=== PATIENT | female | born 1960 | race Two or more races ===

== ENCOUNTER 2017-09-02 15:26 | Emergency (ER) | payer OTHER ==
[~2017-09-02] VITALS: Ht 165.1 cm; Wt 90.7 kg
[~2017-09-02 15:26] MED LIST: ALBU90OI INH; ASPI81CH PO; ATOR40TA PO; BUDE6HFA INH; BUPR100 PO; CLOP75 PO; Esgic Tablet1 EACH PO; LEVSOD125 PO; LISI20 PO; LORA.5 PO; Lomotil Tablet1 EACH PO; NICO14TP TOP; Norco 5-325 Ta1 EACH PO; ONDA8 PO; Percocet 10-321 EACH PO; SERT100 PO; SERT25; TIOT18 INH; Toprol Xl50 MG PO; Ventolin Soln3 ML INH; Zithromax250 MG PO; Zofran Odt4 MG SL; Zofran4 MG PO
[2017-09-02 16:33] LABS: BASOPHILS ABSOLUTE AUTO 0.02 K/mm3 (0.00-0.23); BASOPHILS PERCENT AUTO 0 % (0-2); EOSINOPHILS ABSOLUTE AUTO 0.06 K/mm3 (0.00-0.68); EOSINOPHILS PERCENT AUTO 1 % (0-6); Hematocrit 43.4 % (33.0-51.0); Hemoglobin 14.3 g/dL (11.5-16.0); IMMATURE GRAN ABSOLUTE AUTO 0.01 K/mm3 (0.00-0.10); IMMATURE GRAN PERCENT AUTO 0 % (0-1); LYMPHOCYTES ABSOLUTE AUTO 1.29 K/mm3 (0.84-5.20); LYMPHOCYTES PERCENT AUTO 28 % (21-46); MONOCYTES ABSOLUTE AUTO 0.25 K/mm3 (0.16-1.47); MONOCYTES PERCENT AUTO 5 % (4-13); Mean Corpuscular HGB Conc 32.9 g/dL (31.5-36.5); Mean Corpuscular Volume 94 fL (80-100); Mean Platelet Volume 10.6 fL (9.1-12.4); NEUTROPHILS ABSOLUTE AUTO 3.05 K/mm3 (1.96-9.15); NEUTROPHILS PERCENT AUTO 65 % (41-73); Platelet Count 177 K/mm3 (150-400); RDW Coefficient Variation 12.9 % (11.7-14.2); RDW Standard Deviation 44.3 fL (35.1-46.3); Red Blood Cell Count 4.62 M/mm3 (3.80-5.20); White Blood Cell Count 4.68 K/mm3 (4.00-11.30)
[2017-09-02 16:54] LABS: Troponin I <0.015 ng/mL (0.000-0.040)
[2017-09-02 17:14] LABS: Alanine Aminotransfer (ALT/SGP 31 U/L (12-78); Albumin, Blood 3.9 g/dL (3.4-5.0); Alk Phos 112 U/L (50-136); Anion Gap 7 mmol/L (6-16); Aspartate Aminotrans (AST/SGOT 18 U/L (12-37); Bilirubin, Total 0.3 mg/dL (0.1-1.0); Blood Urea Nitrogen 18 mg/dL (8-24); Bun/Creatinine Ratio 21.5 (12.0-20.0); CO2, Blood 26 mmol/L (21-32); Calcium, Blood 9.1 mg/dL (8.5-10.1); Chloride, Blood 108 mmol/L (98-108); Creatinine, Blood 0.84 mg/dL (0.40-1.00); Glomerular Filtration Rate >60 (60-); Glucose, Blood 81 mg/dL (70-99); Potassium, Blood 3.9 mmol/L (3.5-5.5); Sodium, Blood 141 mmol/L (136-145); Total Protein, Blood 7.9 g/dL (6.4-8.2)
[2018-07-15] MEDS ORDERED: BUSP15 PO (16:27)
[2018-07-18] MEDS ORDERED: ASPI81CH PO (12:59)
[2018-07-18] MEDS ORDERED: ATOR80 PO (12:59)
[2018-07-18] MEDS ORDERED: METO50ER PO (12:59)
== END 2017-09-02 19:04 | disposition left against medical advice (07) ==
LOC: ER 15:26
PROVIDERS: Psychiatry & Neurology Psychiatry
DX: Z53.21 Procedure and treatment not carried out due to patient leaving prior to being seen by health care provider (principal); R53.1 Weakness; R07.9 Chest pain, unspecified; R06.02 Shortness of breath; R20.0 Anesthesia of skin
CPT/HCPCS: 36415; 70450; 71046; 80053; 83880; 84484; 85025; 93005; 93010; 99284

== ENCOUNTER 2017-09-18 16:02 | Observation (INO) | payer OTHER ==
[~2017-09-18] VITALS: Ht 165.1 cm; Wt 100.7 kg
[2017-09-18 17:11] LABS: BASOPHILS ABSOLUTE AUTO 0.01 K/mm3 (0.00-0.23); BASOPHILS PERCENT AUTO 0 % (0-2); EOSINOPHILS ABSOLUTE AUTO 0.03 K/mm3 (0.00-0.68); EOSINOPHILS PERCENT AUTO 1 % (0-6); Hematocrit 43.1 % (33.0-51.0); Hemoglobin 14.2 g/dL (11.5-16.0); IMMATURE GRAN ABSOLUTE AUTO 0.02 K/mm3 (0.00-0.10); IMMATURE GRAN PERCENT AUTO 0 % (0-1); LYMPHOCYTES ABSOLUTE AUTO 1.45 K/mm3 (0.84-5.20); LYMPHOCYTES PERCENT AUTO 24 % (21-46); MONOCYTES ABSOLUTE AUTO 0.27 K/mm3 (0.16-1.47); MONOCYTES PERCENT AUTO 5 % (4-13); Mean Corpuscular HGB 30.9 pg (26.0-34.0); Mean Corpuscular HGB Conc 32.9 g/dL (31.5-36.5); Mean Corpuscular Volume 94 fL (80-100); Mean Platelet Volume 10.8 fL (9.1-12.4); NEUTROPHILS ABSOLUTE AUTO 4.26 K/mm3 (1.96-9.15); NEUTROPHILS PERCENT AUTO 71 % (41-73); Platelet Count 178 K/mm3 (150-400); RDW Coefficient Variation 12.6 % (11.7-14.2); White Blood Cell Count 6.04 K/mm3 (4.00-11.30)
[2017-09-18 17:24] LABS: International Normalized Ratio 1.01; Prothrombin Time Results 10.5 Sec (9.7-11.5)
[2017-09-18 17:30] LABS: Alanine Aminotransfer (ALT/SGP 29 U/L (12-78); Alk Phos 99 U/L (50-136); Anion Gap 6 mmol/L (6-16); Aspartate Aminotrans (AST/SGOT 21 U/L (12-37); Bilirubin, Total 0.4 mg/dL (0.1-1.0); Blood Urea Nitrogen 15 mg/dL (8-24); Bun/Creatinine Ratio 18.9 (12.0-20.0); CO2, Blood 26 mmol/L (21-32); Calcium, Blood 9.3 mg/dL (8.5-10.1); Chloride, Blood 108 mmol/L (98-108); Ethanol (Alcohol), Blood, Med <3 mg/dL; Globulin, Blood 3.9 g/dL (2.2-4.0); Glomerular Filtration Rate >60 (60-); Glucose, Blood 83 mg/dL (70-99); Potassium, Blood 3.5 mmol/L (3.5-5.5); Sodium, Blood 140 mmol/L (136-145); Total Protein, Blood 7.9 g/dL (6.4-8.2)
[2017-09-18] MEDS ORDERED: AMLO5 PO (19:13)
[2017-09-18] MEDS ORDERED: OXYC1TAB11 PO (22:01)
[2017-09-18] MEDS ORDERED: ERGO400 PO (22:02)
[2017-09-18 22:51] LABS: Source, Urine Voided
[2017-09-18 22:55] LABS: Bilirubin, Urine Neg (Neg); Blood, Urine 1+ (Neg); Glucose Qualitative, Urine Neg (Neg); Ketones, Urine Neg (Neg); Leukocyte Esterase, Urine Neg (Neg); Nitrite, Urine Neg (Neg); Protein, Urine Neg (Neg); Urobilinogen, Urine NORM (Normal)
[2017-09-18 23:19] LABS: Appearance, Urine Cloudy (Clear); Color, Urine Yellow (P-Yellow); U Amphetamine Screen Not Detected; U Barbituate Screen Not Detected; U Benzodiazapine Screen DETECTED; U Buprenorphine Screen Not Detected; U Cannabinoids Screen Not Detected; U Cocaine Screen Not Detected; U Methadone Screen Not Detected; U Methamphetamine Screen Not Detected; U Opiates Screen Not Detected; U Oxycodone Screen DETECTED; U Phencyclidine Screen Not Detected; U Propoxyphene Screen Not Detected
[2017-09-18 23:21] LABS: Bacteria Many /hpf; Red Blood Cells, Urine 0-2 /hpf (0-2); Squamous Epithelial Cells Many /hpf (Few); White Blood Cells, Urine 0-2 /hpf (0-5)
[2017-09-19 05:36] LABS: BASOPHILS ABSOLUTE AUTO 0.01 K/mm3 (0.00-0.23); BASOPHILS PERCENT AUTO 0 % (0-2); EOSINOPHILS ABSOLUTE AUTO 0.07 K/mm3 (0.00-0.68); EOSINOPHILS PERCENT AUTO 1 % (0-6); Hematocrit 39.4 % (33.0-51.0); Hemoglobin 12.6 g/dL (11.5-16.0); IMMATURE GRAN ABSOLUTE AUTO 0.01 K/mm3 (0.00-0.10); IMMATURE GRAN PERCENT AUTO 0 % (0-1); LYMPHOCYTES ABSOLUTE AUTO 1.63 K/mm3 (0.84-5.20); LYMPHOCYTES PERCENT AUTO 34 % (21-46); MONOCYTES PERCENT AUTO 6 % (4-13); Mean Corpuscular HGB 30.4 pg (26.0-34.0); Mean Corpuscular Volume 95 fL (80-100); Mean Platelet Volume 10.3 fL (9.1-12.4); NEUTROPHILS ABSOLUTE AUTO 2.85 K/mm3 (1.96-9.15); NEUTROPHILS PERCENT AUTO 59 % (41-73); Platelet Count 157 K/mm3 (150-400); RDW Coefficient Variation 12.5 % (11.7-14.2); RDW Standard Deviation 43.8 fL (35.1-46.3); Red Blood Cell Count 4.15 M/mm3 (3.80-5.20); White Blood Cell Count 4.87 K/mm3 (4.00-11.30)
[2017-09-19 06:13] LABS: Anion Gap 8 mmol/L (6-16); Blood Urea Nitrogen 17 mg/dL (8-24); Bun/Creatinine Ratio 17.7 (12.0-20.0); CO2, Blood 29 mmol/L (21-32); Calcium, Blood 8.5 mg/dL (8.5-10.1); Chloride, Blood 104 mmol/L (98-108); Creatinine, Blood 0.96 mg/dL (0.40-1.00); Glomerular Filtration Rate >60 (60-); Glucose, Blood 94 mg/dL (70-99); Potassium, Blood 3.1 mmol/L (3.5-5.5); Sodium, Blood 141 mmol/L (136-145)
[2017-09-19] MEDS ORDERED: Ventolin5 MG/1 ML INH (10:47)
[2017-09-19] MEDS ORDERED: SERT100 PO (10:49)
[2017-09-19] MEDS ORDERED: TOPI100 PO (10:50)
[2017-09-19] MEDS ORDERED: ZESTORETIC 20-1 EACH PO (10:50)
[2017-09-21 09:39] LABS: Activated Protein C Resistance 2.3 (>1.9); Antithrombin III Activity 97 % (74-126); Protein C Activity 133 % (70-145)
[2017-09-21 14:35] LABS: dRVVT 43.7 sec (31.8-45.7)
[2017-09-21 18:22] LABS: Homocysteine 13.3 umol/L (<15)
[2018-07-15] MEDS ORDERED: BUSP15 PO (16:27)
[2018-07-18] MEDS ORDERED: ASPI81CH PO (12:59)
[2018-07-18] MEDS ORDERED: ATOR80 PO (12:59)
[2018-07-18] MEDS ORDERED: METO50ER PO (12:59)
== END 2017-09-19 12:17 | disposition home or self-care (01) ==
LOC: ER 16:02 → MEDS 16:03 → ENPENDDIS 09-19 09:26 → MEDS 09-19 12:17
PROVIDERS: Emergency Medicine; Internal Medicine
DX: G43.109 Migraine with aura, not intractable, without status migrainosus (principal); K62.7 Radiation proctitis; J44.9 Chronic obstructive pulmonary disease, unspecified; I16.1 Hypertensive emergency; I10 Essential (primary) hypertension; F33.1 Major depressive disorder, recurrent, moderate; I67.9 Cerebrovascular disease, unspecified; E89.0 Postprocedural hypothyroidism; E78.5 Hyperlipidemia, unspecified; F17.210 Nicotine dependence, cigarettes, uncomplicated; Z79.891 Long term (current) use of opiate analgesic; Z79.02 Long term (current) use of antithrombotics/antiplatelets; Z79.899 Other long term (current) drug therapy; Z88.6 Allergy status to analgesic agent; Z91.040 Latex allergy status; Z79.52 Long term (current) use of systemic steroids
CPT/HCPCS: 36415; 70450; 71045; 80048; 80053; 81001; 81240; 83090; 85025; 85300; 85301; 85303; 85306; 85307; 85610; 85613; 85670; 85730; 86147; 87086; 93005; 93010; 94640; 94760; 99285; G0378; G0480

== ENCOUNTER → 2018-05-07 | Outpatient (CLI) | payer OTHER ==
[~2018-05-07] MED LIST changes: +AMLO5 PO; +ERGO400 PO; +OXYC1TAB11 PO; +TOPI100 PO; +Ventolin5 MG/1 ML INH; +ZESTORETIC 20-1 EACH PO
[2018-05-07 15:13] LABS: BASOPHILS ABSOLUTE AUTO 0.03 K/mm3 (0.00-0.23); BASOPHILS PERCENT AUTO 1 % (0-2); EOSINOPHILS ABSOLUTE AUTO 0.04 K/mm3 (0.00-0.68); EOSINOPHILS PERCENT AUTO 1 % (0-6); Hemoglobin 13.8 g/dL (11.5-16.0); IMMATURE GRAN ABSOLUTE AUTO 0.01 K/mm3 (0.00-0.10); IMMATURE GRAN PERCENT AUTO 0 % (0-1); LYMPHOCYTES ABSOLUTE AUTO 1.36 K/mm3 (0.84-5.20); LYMPHOCYTES PERCENT AUTO 32 % (21-46); MONOCYTES ABSOLUTE AUTO 0.27 K/mm3 (0.16-1.47); MONOCYTES PERCENT AUTO 6 % (4-13); Mean Corpuscular HGB 30.9 pg (26.0-34.0); Mean Corpuscular HGB Conc 33.7 g/dL (31.5-36.5); Mean Corpuscular Volume 92 fL (80-100); Mean Platelet Volume 10.7 fL (9.1-12.4); NEUTROPHILS PERCENT AUTO 60 % (41-73); Platelet Count 191 K/mm3 (150-400); RDW Coefficient Variation 13.4 % (11.7-14.2); RDW Standard Deviation 45.3 fL (35.1-46.3); Red Blood Cell Count 4.46 M/mm3 (3.80-5.20); White Blood Cell Count 4.31 K/mm3 (4.00-11.30)
[2018-05-07 15:21] LABS: Albumin, Blood 4.2 g/dL (3.4-5.0); Albumin/Globulin Ratio 1.1 (0.8-1.8); Bilirubin, Total 0.3 mg/dL (0.1-1.0); Bun/Creatinine Ratio 18.2 (12.0-20.0); Calcium, Blood 9.5 mg/dL (8.5-10.1); Creatinine, Blood 0.99 mg/dL (0.40-1.00); Globulin, Blood 3.9 g/dL (2.2-4.0); Potassium, Blood 3.6 mmol/L (3.5-5.5); Total Protein, Blood 8.1 g/dL (6.4-8.2)
== END | disposition home or self-care (01) ==
LOC: LAB EV 15:07 → LAB SHORT 15:07
PROVIDERS: Physician Assistant
DX: R10.11 Right upper quadrant pain (principal)
CPT/HCPCS: 80053; 83690; 85025

== ENCOUNTER → 2018-05-09 | Outpatient (CLI) | payer OTHER ==
[2018-05-10 10:32] LABS: Adenovirus F 40/41 Not Detected (NOT DETECT); Astrovirus Not Detected (NOT DETECT); Campylobacter Sp Not Detected (NOT DETECT); Cryptosporidium Not Detected (NOT DETECT); Cyclospora Cayetanensis Not Detected (NOT DETECT); E. Coli O157 Not Detected (NOT DETECT); Entamoeba Histolytica Not Detected (NOT DETECT); Enteroaggregative E. coli-EAEC Not Detected (NOT DETECT); Enteropathogenic E. coli-EPEC Not Detected (NOT DETECT); Enterotoxigenic E. coli-ETEC Not Detected (NOT DETECT); Giardia Lamblia Not Detected (NOT DETECT); Norovirus GI/GII Not Detected (NOT DETECT); Plesiomonas Shigelloides Not Detected (NOT DETECT); Rotavirus A Not Detected (NOT DETECT); Salmonella Sp Not Detected (NOT DETECT); Sapovirus Not Detected (NOT DETECT); Shiga Toxin-prod E. coli-STEC Not Detected (NOT DETECT); Shigella/Enteroin E. coli-EIEC Not Detected (NOT DETECT); Vibrio Cholerae Not Detected (NOT DETECT); Vibrio Sp Not Detected (NOT DETECT); Yersinia Enterocolitica Not Detected (NOT DETECT)
== END | disposition home or self-care (01) ==
LOC: LAB EV 18:00
PROVIDERS: Physician Assistant
DX: R19.7 Diarrhea, unspecified (principal)
CPT/HCPCS: 87507

== ENCOUNTER 2018-10-27 08:52 | Day surgery (SDC) | payer OTHER ==
[~2018-10-27] VITALS: Ht 160 cm; Wt 101.0 kg
[~2018-10-27 08:52] MED LIST changes: +ATOR80 PO; +Accuneb0.63 MG/3 INH; +BUSP15 PO; +Isosorbide Mono30 MG PO; +METO50ER PO; +ONDA4ODT MM; +POTA10T PO; +SPIRIVA RESPIMAT4 GM INH; +TORSE20 PO
--- NOTE | 2018-10-27 11:05 | NUR ---
PT TOLERATES VENOUS ABLATION AND SCLEROTHERAPY TO R LEG WELL. VSS. NADN. PT VERBALIZES UNDERSTANDING WRITTEN AND VERBAL ORDERS. PT IV DC'D. CATH INTACT. PRESSURE DSG APPLIED. PT DC TO HOME VIA FRIEND BY ADELINA
== END 2018-10-27 23:02 | disposition home or self-care (01) ==
LOC: MHTC 08:52 → EDSTATUS 09:15 → VAS 10:00 → MHTC 23:02
DX: I87.2 Venous insufficiency (chronic) (peripheral) (principal); I10 Essential (primary) hypertension; E78.5 Hyperlipidemia, unspecified; I25.10 Atherosclerotic heart disease of native coronary artery without angina pectoris; J44.9 Chronic obstructive pulmonary disease, unspecified; Z86.73 Personal history of transient ischemic attack (TIA), and cerebral infarction without residual deficits; E03.9 Hypothyroidism, unspecified; F17.210 Nicotine dependence, cigarettes, uncomplicated; Z88.5 Allergy status to narcotic agent; Z88.8 Allergy status to other drugs, medicaments and biological substances; Z91.041 Radiographic dye allergy status
CPT/HCPCS: 36465; 36466; 99152; 99153; C1769; C1894; J2250; J3010; J7030; J7040

== ENCOUNTER 2018-11-16 09:22 | Day surgery (SDC) | payer OTHER ==
[~2018-11-16] VITALS: Ht 162.6 cm; Wt 105.0 kg
== END 2018-11-16 23:26 | disposition home or self-care (01) ==
LOC: MHTC 09:22
DX: I87.2 Venous insufficiency (chronic) (peripheral) (principal); I25.10 Atherosclerotic heart disease of native coronary artery without angina pectoris; I10 Essential (primary) hypertension; E78.5 Hyperlipidemia, unspecified; E03.9 Hypothyroidism, unspecified; J44.9 Chronic obstructive pulmonary disease, unspecified; F17.210 Nicotine dependence, cigarettes, uncomplicated; Z86.73 Personal history of transient ischemic attack (TIA), and cerebral infarction without residual deficits; Z88.5 Allergy status to narcotic agent; Z91.041 Radiographic dye allergy status; Z88.8 Allergy status to other drugs, medicaments and biological substances; Z79.899 Other long term (current) drug therapy
CPT/HCPCS: 36465; 36475; C1888; J1644; J2250; J3010; J7030; J7040

== ENCOUNTER → 2019-01-20 | Outpatient (CLI) | payer OTHER ==
[2019-01-20 19:25] LABS: Alanine Aminotransfer (ALT/SGP 35 U/L (12-78); Albumin, Blood 3.9 g/dL (3.4-5.0); Albumin/Globulin Ratio 1.1 (0.8-1.8); Alk Phos 104 U/L (50-136); Anion Gap 7 mmol/L (6-16); Aspartate Aminotrans (AST/SGOT 18 U/L (12-37); Bilirubin, Total 0.3 mg/dL (0.1-1.0); Blood Urea Nitrogen 16 mg/dL (8-24); Bun/Creatinine Ratio 18.1 (12.0-20.0); CO2, Blood 28 mmol/L (21-32); Calcium, Blood 9.4 mg/dL (8.5-10.1); Chloride, Blood 105 mmol/L (98-108); Creatinine, Blood 0.88 mg/dL (0.40-1.00); Globulin, Blood 3.5 g/dL (2.2-4.0); Glomerular Filtration Rate >60 (60-); Glucose, Blood 80 mg/dL (70-99); Potassium, Blood 4.2 mmol/L (3.5-5.5); Sodium, Blood 140 mmol/L (136-145); Total Protein, Blood 7.4 g/dL (6.4-8.2)
== END ==
LOC: LAB 18:55 → LAB SHORT 18:55
PROVIDERS: Internal Medicine Hematology & Oncology
DX: D49.0 Neoplasm of unspecified behavior of digestive system (principal)
CPT/HCPCS: 80053

== ENCOUNTER 2019-05-05 14:52 | Emergency (ER) | payer OTHER ==
[~2019-05-05] VITALS: Ht 170.2 cm; Wt 99.8 kg
[2019-05-05 15:57] LABS: BASOPHILS ABSOLUTE AUTO 0.01 K/mm3 (0.00-0.23); BASOPHILS PERCENT AUTO 0 % (0-2); EOSINOPHILS ABSOLUTE AUTO 0.03 K/mm3 (0.00-0.68); EOSINOPHILS PERCENT AUTO 1 % (0-6); Hematocrit 43.4 % (33.0-51.0); Hemoglobin 13.9 g/dL (11.5-16.0); IMMATURE GRAN ABSOLUTE AUTO 0.01 K/mm3 (0.00-0.10); IMMATURE GRAN PERCENT AUTO 0 % (0-1); LYMPHOCYTES ABSOLUTE AUTO 1.05 K/mm3 (0.84-5.20); LYMPHOCYTES PERCENT AUTO 24 % (21-46); MONOCYTES ABSOLUTE AUTO 0.24 K/mm3 (0.16-1.47); MONOCYTES PERCENT AUTO 6 % (4-13); Mean Corpuscular HGB 29.6 pg (26.0-34.0); Mean Corpuscular Volume 92 fL (80-100); NEUTROPHILS ABSOLUTE AUTO 2.99 K/mm3 (1.96-9.15); NEUTROPHILS PERCENT AUTO 69 % (41-73); Platelet Count 147 K/mm3 (150-400); RDW Coefficient Variation 13.2 % (11.7-14.2); White Blood Cell Count 4.33 K/mm3 (4.00-11.30)
[2019-05-05 16:37] LABS: Alanine Aminotransfer (ALT/SGP 43 U/L (12-78); Albumin, Blood 3.6 g/dL (3.4-5.0); Alk Phos 85 U/L (50-136); Anion Gap 2 mmol/L (6-16); Aspartate Aminotrans (AST/SGOT 19 U/L (12-37); Bilirubin, Total 0.3 mg/dL (0.1-1.0); Blood Urea Nitrogen 11 mg/dL (8-24); Bun/Creatinine Ratio 15.9 (12.0-20.0); CO2, Blood 27 mmol/L (21-32); Calcium, Blood 8.9 mg/dL (8.5-10.1); Chloride, Blood 111 mmol/L (98-108); Creatinine, Blood 0.69 mg/dL (0.40-1.00); Globulin, Blood 3.5 g/dL (2.2-4.0); Glomerular Filtration Rate >60 (60-); Glucose, Blood 83 mg/dL (70-99); Potassium, Blood 3.7 mmol/L (3.5-5.5); Sodium, Blood 140 mmol/L (136-145); Total Protein, Blood 7.1 g/dL (6.4-8.2)
[2019-05-05 16:41] LABS: Troponin I <0.015 ng/mL (0.000-0.040)
== END 2019-05-05 18:12 | disposition home or self-care (01) ==
LOC: ER 14:52
PROVIDERS: Emergency Medicine
DX: G43.909 Migraine, unspecified, not intractable, without status migrainosus (principal); R07.89 Other chest pain; J44.9 Chronic obstructive pulmonary disease, unspecified; I10 Essential (primary) hypertension; E03.9 Hypothyroidism, unspecified; F17.200 Nicotine dependence, unspecified, uncomplicated; Z86.73 Personal history of transient ischemic attack (TIA), and cerebral infarction without residual deficits; Z88.5 Allergy status to narcotic agent; Z88.8 Allergy status to other drugs, medicaments and biological substances; Z79.899 Other long term (current) drug therapy; Z79.82 Long term (current) use of aspirin
CPT/HCPCS: 36415; 70450; 80053; 84484; 85025; 93005; 93010; 96374; 96375; 99284-25; J1200; J2765

== ENCOUNTER 2019-08-08 14:44 | Emergency (ER) | payer OTHER ==
[~2019-08-08] VITALS: Ht 165.1 cm; Wt 103.4 kg
[2019-08-08 15:24] LABS: BASOPHILS ABSOLUTE AUTO 0.02 K/mm3 (0.00-0.23); BASOPHILS PERCENT AUTO 0 % (0-2); EOSINOPHILS ABSOLUTE AUTO 0.06 K/mm3 (0.00-0.68); EOSINOPHILS PERCENT AUTO 1 % (0-6); Hematocrit 40.2 % (33.0-51.0); Hemoglobin 12.8 g/dL (11.5-16.0); IMMATURE GRAN ABSOLUTE AUTO 0.01 K/mm3 (0.00-0.10); IMMATURE GRAN PERCENT AUTO 0 % (0-1); LYMPHOCYTES ABSOLUTE AUTO 1.26 K/mm3 (0.84-5.20); LYMPHOCYTES PERCENT AUTO 26 % (21-46); MONOCYTES ABSOLUTE AUTO 0.23 K/mm3 (0.16-1.47); MONOCYTES PERCENT AUTO 5 % (4-13); Mean Corpuscular HGB Conc 31.8 g/dL (31.5-36.5); Mean Corpuscular Volume 94 fL (80-100); Mean Platelet Volume 10.5 fL (9.1-12.4); NEUTROPHILS ABSOLUTE AUTO 3.36 K/mm3 (1.96-9.15); NEUTROPHILS PERCENT AUTO 68 % (41-73); Platelet Count 151 K/mm3 (150-400); RDW Coefficient Variation 13.4 % (11.7-14.2); RDW Standard Deviation 46.9 fL (35.1-46.3); Red Blood Cell Count 4.26 M/mm3 (3.80-5.20); White Blood Cell Count 4.94 K/mm3 (4.00-11.30)
[2019-08-08 15:45] LABS: Alanine Aminotransfer (ALT/SGP 28 U/L (12-78); Albumin, Blood 3.3 g/dL (3.4-5.0); Albumin/Globulin Ratio 0.9 (0.8-1.8); Alk Phos 86 U/L (50-136); Anion Gap 3 mmol/L (6-16); Aspartate Aminotrans (AST/SGOT 15 U/L (12-37); Bilirubin, Total 0.3 mg/dL (0.1-1.0); Blood Urea Nitrogen 10 mg/dL (8-24); Bun/Creatinine Ratio 12.1 (12.0-20.0); CO2, Blood 29 mmol/L (21-32); Calcium, Blood 8.8 mg/dL (8.5-10.1); Chloride, Blood 108 mmol/L (98-108); Creatinine, Blood 0.83 mg/dL (0.40-1.00); Globulin, Blood 3.5 g/dL (2.2-4.0); Glomerular Filtration Rate >60 (60-); Glucose, Blood 95 mg/dL (70-99); Potassium, Blood 4.2 mmol/L (3.5-5.5); Sodium, Blood 140 mmol/L (136-145); Total Protein, Blood 6.8 g/dL (6.4-8.2); Troponin I <0.015 ng/mL (0.000-0.040)
== END 2019-08-08 17:20 | disposition home or self-care (01) ==
LOC: ER 14:44
PROVIDERS: Physician Assistant
DX: I20.8 Other forms of angina pectoris (principal); Z88.5 Allergy status to narcotic agent; Z88.8 Allergy status to other drugs, medicaments and biological substances; Z79.899 Other long term (current) drug therapy; Z79.82 Long term (current) use of aspirin; E03.9 Hypothyroidism, unspecified; J44.9 Chronic obstructive pulmonary disease, unspecified; I10 Essential (primary) hypertension; Z86.73 Personal history of transient ischemic attack (TIA), and cerebral infarction without residual deficits; F17.210 Nicotine dependence, cigarettes, uncomplicated
CPT/HCPCS: 36415; 71046; 80053; 83880; 84484; 85025; 93005; 93010; 99285-25

== ENCOUNTER → 2020-05-09 | Outpatient (CLI) | payer OTHER | END | disposition home or self-care (01) | LOC: PLD 10:40 → LAB SHORT 10:40 | DX: D22.61 Melanocytic nevi of right upper limb, including shoulder (principal) | CPT/HCPCS: 88305 ==

== ENCOUNTER → 2020-06-06 | Outpatient (CLI) | payer OTHER ==
[2020-06-07 16:10] LABS: HPV 16 Negative (Negative); HPV 18 Negative (Negative); HPV OTHER HR TYPES Positive (Negative)
== END | disposition home or self-care (01) ==
LOC: LAB 14:00 → LAB SHORT 14:00
PROVIDERS: Obstetrics & Gynecology
DX: Z01.419 Encounter for gynecological examination (general) (routine) without abnormal findings (principal)
CPT/HCPCS: 87624; 87625; G0123

== ENCOUNTER 2020-10-01 15:02 | Emergency (ER) | payer OTHER ==
[~2020-10-01] VITALS: Ht 165.1 cm; Wt 108.9 kg
[2020-10-01 15:30] LABS: BASOPHILS ABSOLUTE AUTO 0.03 K/mm3 (0.00-0.23); BASOPHILS PERCENT AUTO 1 % (0-2); EOSINOPHILS ABSOLUTE AUTO 0.09 K/mm3 (0.00-0.68); EOSINOPHILS PERCENT AUTO 2 % (0-6); Hematocrit 46.1 % (33.0-51.0); Hemoglobin 15.1 g/dL (11.5-16.0); IMMATURE GRAN ABSOLUTE AUTO 0.02 K/mm3 (0.00-0.10); IMMATURE GRAN PERCENT AUTO 0 % (0-1); LYMPHOCYTES ABSOLUTE AUTO 1.41 K/mm3 (0.84-5.20); LYMPHOCYTES PERCENT AUTO 24 % (21-46); MONOCYTES ABSOLUTE AUTO 0.35 K/mm3 (0.16-1.47); MONOCYTES PERCENT AUTO 6 % (4-13); Mean Corpuscular HGB 29.4 pg (26.0-34.0); Mean Corpuscular HGB Conc 32.8 g/dL (31.5-36.5); Mean Corpuscular Volume 90 fL (80-100); NEUTROPHILS ABSOLUTE AUTO 3.96 K/mm3 (1.96-9.15); NEUTROPHILS PERCENT AUTO 68 % (41-73); Platelet Count 165 K/mm3 (150-400); RDW Coefficient Variation 13.5 % (11.7-14.2); RDW Standard Deviation 45.1 fL (35.1-46.3); Red Blood Cell Count 5.13 M/mm3 (3.80-5.20); White Blood Cell Count 5.86 K/mm3 (4.00-11.30)
[2020-10-01 15:53] LABS: Alanine Aminotransfer (ALT/SGP 51 U/L (12-78); Albumin, Blood 3.9 g/dL (3.4-5.0); Alk Phos 93 U/L (50-136); Anion Gap 5 mmol/L (6-16); Aspartate Aminotrans (AST/SGOT 19 U/L (12-37); Bilirubin, Total 0.3 mg/dL (0.1-1.0); Blood Urea Nitrogen 18 mg/dL (8-24); Bun/Creatinine Ratio 20.8 (12.0-20.0); CO2, Blood 28 mmol/L (21-32); Calcium, Blood 8.9 mg/dL (8.5-10.1); Chloride, Blood 108 mmol/L (98-108); Creatinine, Blood 0.86 mg/dL (0.40-1.00); Globulin, Blood 3.8 g/dL (2.2-4.0); Glomerular Filtration Rate >60 (60-); Glucose, Blood 91 mg/dL (70-99); Potassium, Blood 4.1 mmol/L (3.5-5.5); Sodium, Blood 141 mmol/L (136-145); Total Protein, Blood 7.7 g/dL (6.4-8.2)
== END 2020-10-01 18:22 | disposition home or self-care (01) ==
LOC: ER 15:02
PROVIDERS: Physician Assistant
DX: H53.9 Unspecified visual disturbance (principal); R20.0 Anesthesia of skin; Z86.73 Personal history of transient ischemic attack (TIA), and cerebral infarction without residual deficits; Z91.81 History of falling; J44.9 Chronic obstructive pulmonary disease, unspecified; I10 Essential (primary) hypertension; E03.9 Hypothyroidism, unspecified; F17.210 Nicotine dependence, cigarettes, uncomplicated; Z88.5 Allergy status to narcotic agent; Z91.041 Radiographic dye allergy status; Z88.8 Allergy status to other drugs, medicaments and biological substances; Z79.82 Long term (current) use of aspirin; Z79.899 Other long term (current) drug therapy
CPT/HCPCS: 36415; 70450; 80053; 85025; 99284-25

== ENCOUNTER → 2020-10-08 | Outpatient (CLI) | payer OTHER ==
[~2020-10-08] MED LIST changes: +CEFP200 PO; +CYCL10; +IBUP600 PO; +SUMA25 PO
== END ==
LOC: LAB SHORT 16:33 → LAB 16:33
DX: R82.90 Unspecified abnormal findings in urine (principal)
CPT/HCPCS: 87077; 87086; 87186

== ENCOUNTER 2021-01-27 23:36 | Emergency (ER) | payer OTHER ==
[~2021-01-27] VITALS: Ht 162.6 cm; Wt 99.8 kg
[~2021-01-27 23:36] MED LIST changes: -CEFP200 PO; -CYCL10; -IBUP600 PO; -SUMA25 PO
[2021-01-28 00:36] LABS: Source, Urine Clean Catch
[2021-01-28 00:38] LABS: BASOPHILS ABSOLUTE AUTO 0.04 K/mm3 (0.00-0.23); BASOPHILS PERCENT AUTO 1 % (0-2); EOSINOPHILS ABSOLUTE AUTO 0.12 K/mm3 (0.00-0.68); EOSINOPHILS PERCENT AUTO 1 % (0-6); Hematocrit 44.6 % (33.0-51.0); Hemoglobin 14.5 g/dL (11.5-16.0); IMMATURE GRAN ABSOLUTE AUTO 0.07 K/mm3 (0.00-0.10); IMMATURE GRAN PERCENT AUTO 1 % (0-1); LYMPHOCYTES ABSOLUTE AUTO 2.04 K/mm3 (0.84-5.20); LYMPHOCYTES PERCENT AUTO 25 % (21-46); MONOCYTES ABSOLUTE AUTO 0.46 K/mm3 (0.16-1.47); MONOCYTES PERCENT AUTO 6 % (4-13); Mean Corpuscular HGB 28.5 pg (26.0-34.0); Mean Corpuscular HGB Conc 32.5 g/dL (31.5-36.5); Mean Corpuscular Volume 88 fL (80-100); Mean Platelet Volume 11.3 fL (9.1-12.4); NEUTROPHILS ABSOLUTE AUTO 5.58 K/mm3 (1.96-9.15); NEUTROPHILS PERCENT AUTO 67 % (41-73); Platelet Count 206 K/mm3 (150-400); RDW Coefficient Variation 13.9 % (11.7-14.2); RDW Standard Deviation 45.3 fL (35.1-46.3); Red Blood Cell Count 5.09 M/mm3 (3.80-5.20); White Blood Cell Count 8.31 K/mm3 (4.00-11.30)
[2021-01-28 00:39] LABS: Bilirubin, Urine Neg (Neg); Blood, Urine 5+ (Neg); Glucose Qualitative, Urine Neg (Neg); Ketones, Urine Neg (Neg); Leukocyte Esterase, Urine 3+ (Neg); Nitrite, Urine Pos (Neg); Protein, Urine 1+ (Neg); Urobilinogen, Urine NORM (Normal); pH, Urine 6.5 (5.0-8.0)
[2021-01-28 00:42] LABS: Appearance, Urine Hazy (Clear); Color, Urine Yellow (P-Yellow)
[2021-01-28 00:44] LABS: Bacteria Many /hpf; Red Blood Cells, Urine 0-2 /hpf (0-2); Squamous Epithelial Cells Many /hpf (Few); White Blood Cells, Urine TNTC /hpf (0-5)
[2021-01-28 01:33] LABS: Alanine Aminotransfer (ALT/SGP 40 U/L (12-78); Albumin, Blood 3.8 g/dL (3.4-5.0); Alk Phos 94 U/L (50-136); Anion Gap 1 mmol/L (6-16); Aspartate Aminotrans (AST/SGOT 19 U/L (12-37); Bilirubin, Total 0.2 mg/dL (0.1-1.0); Blood Urea Nitrogen 18 mg/dL (8-24); Bun/Creatinine Ratio 18.7 (12.0-20.0); CO2, Blood 29 mmol/L (21-32); Calcium, Blood 9.1 mg/dL (8.5-10.1); Chloride, Blood 112 mmol/L (98-108); Creatinine, Blood 0.97 mg/dL (0.40-1.00); Glomerular Filtration Rate >60 (60-); Glucose, Blood 126 mg/dL (70-99); Potassium, Blood 3.9 mmol/L (3.5-5.5); Sodium, Blood 142 mmol/L (136-145); Total Protein, Blood 7.8 g/dL (6.4-8.2)
[2021-01-28] MEDS ORDERED: CEFP200 PO (02:50)
[2021-01-28] MEDS ORDERED: IBUP600 PO (02:50)
== END 2021-01-28 04:36 | disposition home or self-care (01) ==
LOC: ER 23:36
PROVIDERS: Emergency Medicine
DX: N28.1 Cyst of kidney, acquired (principal); N12 Tubulo-interstitial nephritis, not specified as acute or chronic; N39.0 Urinary tract infection, site not specified; I10 Essential (primary) hypertension; E03.9 Hypothyroidism, unspecified; J44.9 Chronic obstructive pulmonary disease, unspecified; F17.200 Nicotine dependence, unspecified, uncomplicated; Z88.5 Allergy status to narcotic agent; Z88.8 Allergy status to other drugs, medicaments and biological substances; Z79.82 Long term (current) use of aspirin; Z79.899 Other long term (current) drug therapy
CPT/HCPCS: 36415; 74176; 80053; 81001; 83690; 85025; 87077; 87086; 87186; 96365; 96375; 99285-25; A9270; J0696; J2270; J2405

== ENCOUNTER 2021-02-10 01:15 | Inpatient (IN) | payer OTHER ==
[~2021-02-10] VITALS: Ht 162.6 cm; Wt 119.8 kg
[~2021-02-10 01:15] MED LIST changes: +CEFP200 PO; +IBUP600 PO
[2021-02-10 01:52] LABS: BASOPHILS ABSOLUTE AUTO 0.07 K/mm3 (0.00-0.23); BASOPHILS PERCENT AUTO 1 % (0-2); EOSINOPHILS ABSOLUTE AUTO 0.12 K/mm3 (0.00-0.68); EOSINOPHILS PERCENT AUTO 2 % (0-6); Hematocrit 44.6 % (33.0-51.0); Hemoglobin 14.4 g/dL (11.5-16.0); IMMATURE GRAN ABSOLUTE AUTO 0.13 K/mm3 (0.00-0.10); IMMATURE GRAN PERCENT AUTO 2 % (0-1); LYMPHOCYTES ABSOLUTE AUTO 2.12 K/mm3 (0.84-5.20); LYMPHOCYTES PERCENT AUTO 27 % (21-46); MONOCYTES ABSOLUTE AUTO 0.52 K/mm3 (0.16-1.47); MONOCYTES PERCENT AUTO 7 % (4-13); Mean Corpuscular HGB 28.7 pg (26.0-34.0); Mean Corpuscular HGB Conc 32.3 g/dL (31.5-36.5); Mean Corpuscular Volume 89 fL (80-100); Mean Platelet Volume 11.8 fL (9.1-12.4); NEUTROPHILS ABSOLUTE AUTO 5.03 K/mm3 (1.96-9.15); NEUTROPHILS PERCENT AUTO 63 % (41-73); Platelet Count 187 K/mm3 (150-400); RDW Coefficient Variation 14.9 % (11.7-14.2); RDW Standard Deviation 47.3 fL (35.1-46.3); Red Blood Cell Count 5.02 M/mm3 (3.80-5.20); White Blood Cell Count 7.99 K/mm3 (4.00-11.30)
[2021-02-10 02:44] LABS: Alanine Aminotransfer (ALT/SGP 44 U/L (12-78); Albumin, Blood 3.9 g/dL (3.4-5.0); Albumin/Globulin Ratio 1.1 (0.8-1.8); Alk Phos 81 U/L (50-136); Anion Gap 5 mmol/L (6-16); Aspartate Aminotrans (AST/SGOT 17 U/L (12-37); Bilirubin, Total 0.4 mg/dL (0.1-1.0); Blood Urea Nitrogen 17 mg/dL (8-24); CO2, Blood 27 mmol/L (21-32); Calcium, Blood 8.9 mg/dL (8.5-10.1); Chloride, Blood 109 mmol/L (98-108); Creatinine, Blood 0.77 mg/dL (0.40-1.00); Globulin, Blood 3.5 g/dL (2.2-4.0); Glomerular Filtration Rate >60 (60-); Glucose, Blood 104 mg/dL (70-99); Potassium, Blood 3.8 mmol/L (3.5-5.5); Sodium, Blood 141 mmol/L (136-145); Total Protein, Blood 7.4 g/dL (6.4-8.2); Troponin I <0.015 ng/mL (0.000-0.040)
[2021-02-10] MEDS ORDERED: SUMA25 PO (12:44)
[2021-02-10] MEDS ORDERED: CYCL10 (12:46)
--- NOTE | 2021-02-10 14:43 | NUR ---
PHYSICIAN UPDATED PHYSICIAN UPDATED ON PT'S INCREASE IN PAIN. MEDICATION ORDERED, SEE EMAR. PT AND PHARMACIST CONSULTED REGARDING PT'S ALLERGY TO CODEINE. PT REPORTS TO HAVE HAD MORPHINE IN THE PAST AND HAD ZERO REACTIONS.
--- NOTE | 2021-02-10 19:10 | NUR ---
SHIFT SUMMARY PT BROUGHT TO UNIT FROM ED THIS AFTERNOON. THORAVENT IN L CHEST WALL. SITE WNL. DRESSING INTACT. PT REPORTS PAIN IN L CHEST WITH INSPIRATION. PHYSICIAN NOTIFIED. MEDICATED PER PHYSICIAN. PT REPORTS RELIEF. FAMILY AT BEDSIDE T/O SHIFT. HR STABLE. BP STABLE. OXYGEN SATURATION MAINTAINED ABOVE 92% ON 2 L OF OXYGEN VIA NC. PT SBA TO COMMODE WITH WALKER. REPORT GIVEN TO BRAD SIDDIQUI.
[2021-02-10 23:45] LABS: Source, Urine Clean Catch
[2021-02-10 23:52] LABS: Bilirubin, Urine Neg (Neg); Blood, Urine 3+ (Neg); Glucose Qualitative, Urine Neg (Neg); Ketones, Urine Neg (Neg); Leukocyte Esterase, Urine 2+ (Neg); Nitrite, Urine Pos (Neg); Protein, Urine Neg (Neg); Urobilinogen, Urine NORM (Normal)
[2021-02-11 00:01] LABS: Appearance, Urine Hazy (Clear); Bacteria Many /hpf; Color, Urine Yellow (P-Yellow); Squamous Epithelial Cells Rare /hpf (Few)
[2021-02-11 04:28] LABS: BASOPHILS ABSOLUTE AUTO 0.07 K/mm3 (0.00-0.23); BASOPHILS PERCENT AUTO 1 % (0-2); EOSINOPHILS ABSOLUTE AUTO 0.02 K/mm3 (0.00-0.68); EOSINOPHILS PERCENT AUTO 0 % (0-6); Hematocrit 40.9 % (33.0-51.0); Hemoglobin 13.1 g/dL (11.5-16.0); IMMATURE GRAN ABSOLUTE AUTO 0.13 K/mm3 (0.00-0.10); IMMATURE GRAN PERCENT AUTO 1 % (0-1); LYMPHOCYTES ABSOLUTE AUTO 1.98 K/mm3 (0.84-5.20); LYMPHOCYTES PERCENT AUTO 14 % (21-46); MONOCYTES PERCENT AUTO 6 % (4-13); Mean Corpuscular HGB 28.4 pg (26.0-34.0); Mean Corpuscular Volume 89 fL (80-100); NEUTROPHILS ABSOLUTE AUTO 11.66 K/mm3 (1.96-9.15); NEUTROPHILS PERCENT AUTO 80 % (41-73); Platelet Count 176 K/mm3 (150-400); RDW Coefficient Variation 14.5 % (11.7-14.2); RDW Standard Deviation 46.5 fL (35.1-46.3); Red Blood Cell Count 4.61 M/mm3 (3.80-5.20); White Blood Cell Count 14.66 K/mm3 (4.00-11.30)
[2021-02-11 04:54] LABS: Anion Gap 4 mmol/L (6-16); Blood Urea Nitrogen 21 mg/dL (8-24); Bun/Creatinine Ratio 26.4 (12.0-20.0); CO2, Blood 27 mmol/L (21-32); Calcium, Blood 8.6 mg/dL (8.5-10.1); Chloride, Blood 108 mmol/L (98-108); Glomerular Filtration Rate >60 (60-); Glucose, Blood 105 mg/dL (70-99); Magnesium, Blood 2.3 mg/dL (1.6-2.4); Potassium, Blood 3.9 mmol/L (3.5-5.5); Sodium, Blood 139 mmol/L (136-145)
--- NOTE | 2021-02-11 05:08 | NUR ---
SHIFT SUMMARY PT IS ALERT AND ORIENTED X4. THERE HAVE BEEN NO ACUTE CHANGES. VITALS ARE STABLE AND PT DENIES CHEST PAIN OR TIGHTNESS. PT HAS BEEN PAINFUL AND MEDICATED PER EMAR. PT IS AMBULATED TO BATHROOM WITH WALKER AND TOLERATING WELL. PT HAS BEEN ON AN OFF NC OF 2L WITH NO DESATING AND ON CPAP WHILE SLEEPING. USING CALL LIGHT APPROPRIETLY.
--- NOTE | 2021-02-11 07:12 | NUR ---
NOTIFIED PULM PHYSICIAN REGARDING VALVE NOT FLUCTUATING ON THORAVENT.
--- NOTE | 2021-02-11 14:27 | NUR ---
UPDATE PULMONOLOGY AT BEDSIDE. INFORMED PT OF NEED FOR NEW CHEST TUBE PLACEMENT. PT AGREABLE TO PROCEDURE. CONSENT SIGNED AT BEDSIDE WITH SPRAY WORKER AND PHYSICIAN. SPRAY WORKER ASSISTED PHYSICIAN WITH PROCEDURE AT BEDSIDE. PT'S VS STABLE. PT IN CHAIR AT THIS TIME, CHEST TUBE TAPED TO FLOOR ON WATER SEAL SUCTION. TUBING SECURE. DRESSING INTACT.
--- NOTE | 2021-02-11 14:49 | NUR ---
UPDATE PHSYICIAN NOTIFIED OF PT'S INCREASE IN PAIN. PAIN MEDICATION TIME CHANGED PER PHYSICIAN. SEE EMAR.
--- NOTE | 2021-02-11 19:28 | NUR ---
SHIFT SUMMARY PT ALERT AND ORIENTED X 4. HR STABLE. BP STABLE. NO CP OR PRESSURE. OXYGEN SATURATION MAINTAINED ABOVE 92% ON 3 L OF OXYGEN OR 15 L VIA NON-REBREATHER WHEN ADVISED TO DO SO BY PULMONOLOGY. AFTER CHEST TUBE INSERTION NON-REBREATHER WAS DC'D. ELECTRONIC [employer]ARF[employer] OFFICER ASSISTED PULMONOLOGY WITH CHEST TUBE INSERTION DURING SHIFT. PT TOLERATED WELL. MEDICATIONS ORDERED AND GIVEN PER PHYSICIAN ORDER BY ELECTRONIC WARFARE OFFICER. CHEST TUBE HOOKED TO SUCTION T/O SHIFT. PT REPORTS INCREASE IN PAIN. PULMONOLOGY TO BEDSIDE AT END OF SHIFT. DR. MEYERS TURNED SUCTION OFF AT THIS TIME, CHEST TUBE NOW AT WATER SEAL WITH NO SUCTION. DR. MEYERS ADIVSED TO TURN SUCTION ON IF PT BEGINS TO EXPERIENCE DIFFICULTY AND CALL PHYSICIAN. PT REPORTS SEVERE PAIN, PHYSICIAN AWARE. MEDICATIONS ORDERED AND GIVEN PER PHYSICIAN. PT REPORTS RELIEF. CHEST TUBE TAPED TO GROUND BY PT'S BED. SITE WNL. DRESSING C/D/I. IMAGES SENT TO [facility] FOR VATS PROCEDURE RECOMMENDED BY PULMONOLOGY. [facility] HAS NO BEDS AT THIS TIME. REPORT GIVEN TO LUL SALINAS.
[2021-02-12 04:18] LABS: BASOPHILS ABSOLUTE AUTO 0.09 K/mm3 (0.00-0.23); BASOPHILS PERCENT AUTO 1 % (0-2); EOSINOPHILS ABSOLUTE AUTO 0.11 K/mm3 (0.00-0.68); EOSINOPHILS PERCENT AUTO 1 % (0-6); Hematocrit 46.8 % (33.0-51.0); Hemoglobin 14.7 g/dL (11.5-16.0); IMMATURE GRAN ABSOLUTE AUTO 0.17 K/mm3 (0.00-0.10); IMMATURE GRAN PERCENT AUTO 2 % (0-1); LYMPHOCYTES ABSOLUTE AUTO 2.91 K/mm3 (0.84-5.20); LYMPHOCYTES PERCENT AUTO 28 % (21-46); MONOCYTES ABSOLUTE AUTO 0.63 K/mm3 (0.16-1.47); MONOCYTES PERCENT AUTO 6 % (4-13); Mean Corpuscular HGB 28.6 pg (26.0-34.0); Mean Corpuscular HGB Conc 31.4 g/dL (31.5-36.5); Mean Corpuscular Volume 91 fL (80-100); Mean Platelet Volume 10.6 fL (9.1-12.4); NEUTROPHILS ABSOLUTE AUTO 6.58 K/mm3 (1.96-9.15); NEUTROPHILS PERCENT AUTO 63 % (41-73); Platelet Count 193 K/mm3 (150-400); RDW Coefficient Variation 14.6 % (11.7-14.2); Red Blood Cell Count 5.14 M/mm3 (3.80-5.20); White Blood Cell Count 10.49 K/mm3 (4.00-11.30)
[2021-02-12 04:34] LABS: Anion Gap 3 mmol/L (6-16); Blood Urea Nitrogen 24 mg/dL (8-24); Bun/Creatinine Ratio 27.1 (12.0-20.0); CO2, Blood 31 mmol/L (21-32); Calcium, Blood 8.9 mg/dL (8.5-10.1); Chloride, Blood 104 mmol/L (98-108); Creatinine, Blood 0.89 mg/dL (0.40-1.00); Glomerular Filtration Rate >60 (60-); Glucose, Blood 82 mg/dL (70-99); Sodium, Blood 138 mmol/L (136-145)
--- NOTE | 2021-02-12 07:09 | NUR ---
SHIFT SUMMARY PT A&O X4. VSS. SPO2 > 92% ON 3L NC. LUNG SOUNDS CLEAR T/O, DIM ON L SIDE & BLL. L ANTERIOR CHEST TUBE TO WATER SEAL W/ NO SUCTION. PT REPORTS SIGNIFICANT IMPROVEMENT OF L-SIDED "RIBS, ARM PIT & SHOULDER BLADES" PAIN, MEDICATED W/ PRN IV DILAUDID X4 THIS SHIFT. PT REPORTING OVERALL IMPROVEMENT. NO EVENTS OVER NIGHT.
--- NOTE | 2021-02-12 17:13 | NUR ---
SHIFT SUMMARY PT ALERT AND ORIENTED. VS STABLE. O2 SATS HAVE REMAINED ABOVE 90% ON 3L NC. BP STABLE. HR NSR. PT COMPLAINS OF PAIN TO CHEST TUBE INSERTION SITE AND MEDICATED NEEDED. PT UP IN RECLINER MOST OF SHIFT. CHEST TUBE TO SUCTION. WILL CONTINUE TO MONITOR CLOSELY AND REPORT TO ONCOMING RN. CALL LIGHT IN REACH
[2021-02-13 04:24] LABS: BASOPHILS PERCENT AUTO 1 % (0-2); EOSINOPHILS PERCENT AUTO 2 % (0-6); Hematocrit 46.3 % (33.0-51.0); Hemoglobin 14.5 g/dL (11.5-16.0); IMMATURE GRAN ABSOLUTE AUTO 0.16 K/mm3 (0.00-0.10); IMMATURE GRAN PERCENT AUTO 2 % (0-1); LYMPHOCYTES ABSOLUTE AUTO 2.12 K/mm3 (0.84-5.20); LYMPHOCYTES PERCENT AUTO 20 % (21-46); MONOCYTES ABSOLUTE AUTO 0.63 K/mm3 (0.16-1.47); MONOCYTES PERCENT AUTO 6 % (4-13); Mean Corpuscular HGB 28.3 pg (26.0-34.0); Mean Corpuscular HGB Conc 31.3 g/dL (31.5-36.5); Mean Corpuscular Volume 90 fL (80-100); NEUTROPHILS ABSOLUTE AUTO 7.51 K/mm3 (1.96-9.15); NEUTROPHILS PERCENT AUTO 70 % (41-73); Platelet Count 185 K/mm3 (150-400); RDW Coefficient Variation 14.3 % (11.7-14.2); Red Blood Cell Count 5.13 M/mm3 (3.80-5.20); White Blood Cell Count 10.72 K/mm3 (4.00-11.30)
[2021-02-13 04:52] LABS: Anion Gap 3 mmol/L (6-16); Blood Urea Nitrogen 25 mg/dL (8-24); Bun/Creatinine Ratio 30.2 (12.0-20.0); CO2, Blood 30 mmol/L (21-32); Calcium, Blood 8.9 mg/dL (8.5-10.1); Chloride, Blood 108 mmol/L (98-108); Creatinine, Blood 0.83 mg/dL (0.40-1.00); Glomerular Filtration Rate >60 (60-); Glucose, Blood 90 mg/dL (70-99); Magnesium, Blood 2.1 mg/dL (1.6-2.4); Potassium, Blood 3.9 mmol/L (3.5-5.5); Sodium, Blood 141 mmol/L (136-145)
--- NOTE | 2021-02-13 05:05 | NUR ---
SHIFT SUMMARY PT AOX4, DYSPNEA WITH EXERTION AND POSITIONING. DENIES CP OTHER THAN SORENESS AND PAIN AT SITE OF CHEST TUBE IN L ANTERIOR CHEST. CONTINUOUS LOW SUCTION TO WATER SEAL FROM CHEST TUBE. HR 60'S SINUS ON TELE. SBP 110'S-130'S. PT LAYS IN BED FOR MOST OF SHIFT. CONTINUOUS BUBBLING IN CHAMBER A, NO CHANGE IN RED FLUID IN COLLECTION CHAMBER, REMAINED AT 50 MLS T/O SHIFT. PT MEDICATED X2 WITH ORDERED IV DILAUDID FOR PAIN DURING SHIFT. PAIN DOWN TO 3-4/10 FOLLOWING DOSES. PT SATS MAINTAINED 94-100% ON 2 L VIA NC. SALINE LOCKED.
--- NOTE | 2021-02-13 18:56 | NUR ---
PT ON 2LNC ALL SHIFT; CHEST TUBE TO SUCTION AT START OF SHIFT, AT 0900 DR. MEYERS WAS CALLED CONCERNING DIMINISHED LUNG SOUNDS IN L UPPER FIELD; CHEST TUBE MODE CHANGED TO WATER SEAL AT 1025 BY PROVIDER; AFTER FOLLOW UP CXR, SUCTION AT 25MMHG BACK ON AT 1450; PT DENIES RESPIRATORY S/S; PT REQUESTED/RECEIVED HYDROMORPHONE 3X PER MAR; PT REPORTS LEAKING IN R RADIAL PIV; PT DENIES ADDITIONAL CONCERNS AT THIS TIME
--- NOTE | 2021-02-13 20:37 | NUR ---
CALL TO DR ABDUL THIS RN CALLS PROVIDER TO NOTIFY OF DR SERRANO RECCOMENDATION TO PULL BACK CHEST TUBE 4-[address] ABDUL STATES HE IS AWARE OF GROWTH IN PNEUMO ON 2ND XRAY TODAY, WANTS PT KEPT ON SUCTION AT CURRENT SETTING, DOES NOT PLAN TO REPOSITION CHEST TUBE TONIGHT.
--- NOTE | 2021-02-14 07:43 | NUR ---
SHIFT SUMMARY PT AOX4 T/O SHIFT, BREATHING EVEN AND UNLABORED. SINUS RHYTHM 60'S. SATS 94-97% ON 2 L VIA NC. CHEST TUBE TO L SIDE CHEST HAD TO BE RETAPED SEVERAL TIMES BY THIS RN DURING SHIFT DUE TO PULLING WITH MINOR POSITIONING BY PT. BUBBLING CONTINUED IN CHAMBER A THROUGHOUT SHIFT, NO SIGNS OF KINKING IN TUBE. OUTPUT AT 100 MLS TOTAL IN COLLECTION CHAMBER, SEROSANGUINOUS DRAINAGE. NO BED PLACEMENT DURING SHIFT FOR TRANSFER. IV SALINE LOCKED.
--- NOTE | 2021-02-14 11:29 | NUR ---
PT ALERT AND ORIENTED X4. ON 2 L O2 NASAL CANNULA, WHICH PATIENT STATES IS HER BASELINE. CHEST TUBE TO LEFT CHEST WALL SUCTION AT 25 MMHG, DRAINING SEROSANG FLUID. CHEST TUBE DRAINAGED AT 100ML UPON SHIFT CHANGE THIS AM. WILL CONTINUE TO MONITOR OUTPUT FOR THIS SHIFT. DR. MEYERS IN THIS AM TO ASSESS CHEST TUBE. LUNGS SOUNDING DIMINISHED ON LEFT UPPER LOBE. REPEAT CHEST XRAY. TELE SHOWING SINUS WITH HR 60-70'S. DENIES CHEST PAIN/PRESSURE. VITAL SIGNS STABLE. TAKING MEDS WITH WATER. IV ANTIBIOTICS INFUSED. BOWEL TONES HEARD. CALL LIGHT IN REACH. PT DENIES NEEDS. PAIN REPORTED THIS AM WITH CHEST TUBE. MEDICTED PER EMAR WITH GOOD RELIEF. WILL CONTINUE TO MONITOR.
--- NOTE | 2021-02-14 16:41 | NUR ---
TRANSFER TO [facility]: PT REMAINS STABLE, NO ACUTE CHANGES. SEE PREVIOUS NOTES. CALL PLACED TO NURSE SARA AT [facility] FOR REPORT. PT TRANSPORTED WITH CHEST TUBE TO SUCTION. MEDICATED PER EMAR FOR PAIN PRIOR TO LEAVING. PT LEFT VIA GURNEY WITH ALL BELONGINGS. TOTAL CHEST TUBE OUTPUT OF 30ML THIS SHIFT.
== END 2021-02-14 16:19 | disposition short-term general hospital (02) | DRG 190 ==
LOC: ER 01:15 → ERHOLD 05:00 → PCU 05:00
PROVIDERS: Family Medicine; Internal Medicine Critical Care Medicine; Student in an Organized Health Care Education/Training Program; ADMIT Family Medicine
PROC: 0W9B30Z Drainage of Left Pleural Cavity with Drainage Device, Percutaneous Approach (ICD-10-PCS; principal; 2021-02-10)
PROC: 0W9B30Z Drainage of Left Pleural Cavity with Drainage Device, Percutaneous Approach (ICD-10-PCS; 2021-02-11)
DX: J44.9 Chronic obstructive pulmonary disease, unspecified (principal); J96.21 Acute and chronic respiratory failure with hypoxia; J93.12 Secondary spontaneous pneumothorax; N39.0 Urinary tract infection, site not specified; B96.20 Unspecified Escherichia coli [E. coli] as the cause of diseases classified elsewhere; G43.909 Migraine, unspecified, not intractable, without status migrainosus; G89.29 Other chronic pain; E89.0 Postprocedural hypothyroidism; I10 Essential (primary) hypertension; I25.10 Atherosclerotic heart disease of native coronary artery without angina pectoris; F17.210 Nicotine dependence, cigarettes, uncomplicated; Z88.5 Allergy status to narcotic agent; Z99.81 Dependence on supplemental oxygen; Z88.8 Allergy status to other drugs, medicaments and biological substances; Z79.899 Other long term (current) drug therapy; Z79.82 Long term (current) use of aspirin; I25.2 Old myocardial infarction; Z86.73 Personal history of transient ischemic attack (TIA), and cerebral infarction without residual deficits; Z85.44 Personal history of malignant neoplasm of other female genital organs; Z90.710 Acquired absence of both cervix and uterus; Z90.49 Acquired absence of other specified parts of digestive tract; Z98.890 Other specified postprocedural states; Z87.442 Personal history of urinary calculi
CPT/HCPCS: 32551; 36415; 71045; 71250; 80048; 80053; 81001; 83735; 84145; 84484; 85025; 87077; 87086; 87186; 93005; 93010; 94640; 94660; 94664; 94762; 96374-59; 96375-59; 99285-25; 99406; A9270; J0696; J1170; J2250; J2270; J2405

== ENCOUNTER → 2021-03-05 | Outpatient (CLI) | payer OTHER ==
[~2021-03-05] MED LIST changes: +CYCL10; +SUMA25 PO
[2021-03-05 18:05] LABS: Source, Urine Clean Catch
[2021-03-05 18:55] LABS: Appearance, Urine Clear (Clear); Bilirubin, Urine Neg (Neg); Blood, Urine 3+ (Neg); Color, Urine Yellow (P-Yellow); Glucose Qualitative, Urine Neg (Neg); Ketones, Urine Neg (Neg); Leukocyte Esterase, Urine Neg (Neg); Nitrite, Urine Neg (Neg); Protein, Urine Neg (Neg); Specific Gravity, Urine 1.015 (1.003-1.022); Urobilinogen, Urine NORM (Normal)
[2021-03-05 19:17] LABS: Bacteria Few /hpf; Red Blood Cells, Urine 0-2 /hpf (0-2); Squamous Epithelial Cells Rare /hpf (Few); White Blood Cells, Urine Rare /hpf (0-5)
== END | disposition home or self-care (01) ==
LOC: LAB SHORT 15:06
PROVIDERS: Nurse Practitioner Family
DX: N30.90 Cystitis, unspecified without hematuria (principal)
CPT/HCPCS: 81001

== ENCOUNTER → 2021-06-10 | Outpatient (CLI) | payer OTHER ==
[2021-06-10 17:19] LABS: Appearance, Urine Hazy (Clear); Bilirubin, Urine Neg (Neg); Blood, Urine 4+ (Neg); Color, Urine Yellow (P-Yellow); Glucose Qualitative, Urine Neg (Neg); Ketones, Urine Neg (Neg); Leukocyte Esterase, Urine 3+ (Neg); Nitrite, Urine Pos (Neg); Protein, Urine 1+ (Neg); Specific Gravity, Urine 1.015 (1.003-1.022); Urobilinogen, Urine NORM (Normal)
[2021-06-10 17:50] LABS: U Amphetamine Screen Not Detected; U Barbituate Screen Not Detected; U Benzodiazapine Screen DETECTED; U Buprenorphine Screen Not Detected; U Cannabinoids Screen Not Detected; U Cocaine Screen Not Detected; U Methadone Screen Not Detected; U Methamphetamine Screen Not Detected; U Opiates Screen Not Detected; U Oxycodone Screen DETECTED; U Phencyclidine Screen Not Detected; U Propoxyphene Screen Not Detected
[2021-06-10 17:59] LABS: Bacteria Many /hpf; Squamous Epithelial Cells Many /hpf (Few)
== END | disposition home or self-care (01) ==
LOC: LAB SHORT 16:02 → LAB FUT 06-06 06:30
PROVIDERS: Nurse Practitioner Family
DX: R30.9 Painful micturition, unspecified (principal); Z79.891 Long term (current) use of opiate analgesic
CPT/HCPCS: 81001; 87077; 87086; 87186

== ENCOUNTER → 2021-06-21 | Outpatient (CLI) | payer OTHER ==
[2021-06-21 09:43] LABS: Source, Urine Clean Catch
[2021-06-21 10:09] LABS: Appearance, Urine Clear (Clear); Bilirubin, Urine Neg (Neg); Blood, Urine 5+ (Neg); Color, Urine Yellow (P-Yellow); Glucose Qualitative, Urine Neg (Neg); Ketones, Urine Neg (Neg); Leukocyte Esterase, Urine 3+ (Neg); Nitrite, Urine Neg (Neg); Protein, Urine 1+ (Neg); Specific Gravity, Urine 1.015 (1.003-1.022); Urobilinogen, Urine NORM (Normal)
[2021-06-21 10:19] LABS: Squamous Epithelial Cells Mod /hpf (Few)
[2021-06-21 10:23] LABS: Bacteria Mod /hpf; Hyaline Casts 0-2 /lpf (0-2)
== END | disposition home or self-care (01) ==
LOC: LAB SHORT 08:30
PROVIDERS: Nurse Practitioner Family
DX: N30.01 Acute cystitis with hematuria (principal)
CPT/HCPCS: 81001; 87086

== ENCOUNTER 2021-10-03 12:58 | Emergency (ER) | payer OTHER ==
[~2021-10-03] VITALS: Ht 162.6 cm; Wt 108.9 kg
[2021-10-03 13:27] LABS: Source, Urine Voided
[2021-10-03 13:45] LABS: BASOPHILS ABSOLUTE AUTO 0.14 K/mm3 (0.00-0.23); BASOPHILS PERCENT AUTO 2 % (0-2); EOSINOPHILS ABSOLUTE AUTO 0.14 K/mm3 (0.00-0.68); EOSINOPHILS PERCENT AUTO 2 % (0-6); Hematocrit 50.3 % (33.0-51.0); Hemoglobin 16.1 g/dL (11.5-16.0); IMMATURE GRAN ABSOLUTE AUTO 0.16 K/mm3 (0.00-0.10); IMMATURE GRAN PERCENT AUTO 2 % (0-1); LYMPHOCYTES ABSOLUTE AUTO 1.55 K/mm3 (0.84-5.20); LYMPHOCYTES PERCENT AUTO 17 % (21-46); MONOCYTES PERCENT AUTO 6 % (4-13); Mean Corpuscular HGB 27.3 pg (26.0-34.0); Mean Corpuscular Volume 85 fL (80-100); Mean Platelet Volume 10.7 fL (9.1-12.4); NEUTROPHILS ABSOLUTE AUTO 6.59 K/mm3 (1.96-9.15); NEUTROPHILS PERCENT AUTO 73 % (41-73); Platelet Count 209 K/mm3 (150-400); RDW Coefficient Variation 14.6 % (11.7-14.2); RDW Standard Deviation 45.6 fL (35.1-46.3); Red Blood Cell Count 5.89 M/mm3 (3.80-5.20); White Blood Cell Count 9.08 K/mm3 (4.00-11.30)
[2021-10-03 13:48] LABS: Bilirubin, Urine Neg (Neg); Blood, Urine 4+ (Neg); Glucose Qualitative, Urine Neg (Neg); Ketones, Urine Neg (Neg); Leukocyte Esterase, Urine 1+ (Neg); Nitrite, Urine Neg (Neg); Protein, Urine Neg (Neg); Urobilinogen, Urine NORM (Normal)
[2021-10-03 13:50] LABS: Appearance, Urine Hazy (Clear); Color, Urine Pale Yellow (P-Yellow)
[2021-10-03 13:52] LABS: Bacteria Many /hpf; Red Blood Cells, Urine 25-50 /hpf (0-2); Squamous Epithelial Cells Few /hpf (Few)
[2021-10-03 14:03] LABS: Alanine Aminotransfer (ALT/SGP 37 U/L (12-78); Albumin, Blood 3.9 g/dL (3.4-5.0); Alk Phos 103 U/L (50-136); Anion Gap 4 mmol/L (6-16); Aspartate Aminotrans (AST/SGOT 18 U/L (12-37); Bilirubin, Total 0.3 mg/dL (0.1-1.0); Blood Urea Nitrogen 18 mg/dL (8-24); CO2, Blood 30 mmol/L (21-32); Calcium, Blood 9.3 mg/dL (8.5-10.1); Chloride, Blood 109 mmol/L (98-108); Creatinine, Blood 0.95 mg/dL (0.40-1.00); Globulin, Blood 3.9 g/dL (2.2-4.0); Glomerular Filtration Rate >60 (60-); Glucose, Blood 90 mg/dL (70-99); Potassium, Blood 3.8 mmol/L (3.5-5.5); Sodium, Blood 143 mmol/L (136-145); Total Protein, Blood 7.8 g/dL (6.4-8.2)
[2021-10-03] MEDS ORDERED: KLONOPIN0.5 M6 (14:22)
[2021-10-03 14:25] LABS: Influenza A, PCR NEGATIVE (NEGATIVE); Influenza B, PCR NEGATIVE (NEGATIVE); Resp Syncytial Virus, PCR NEGATIVE (NEGATIVE); SARS-Cov-2 (COVID-19) PCR, MMC NEGATIVE (NEGATIVE)
== END 2021-10-03 15:49 | disposition home or self-care (01) ==
LOC: ER 12:58
PROVIDERS: Emergency Medicine
DX: I10 Essential (primary) hypertension (principal); Z88.5 Allergy status to narcotic agent; Z88.8 Allergy status to other drugs, medicaments and biological substances; Z79.899 Other long term (current) drug therapy; Z79.82 Long term (current) use of aspirin; G43.909 Migraine, unspecified, not intractable, without status migrainosus; J44.9 Chronic obstructive pulmonary disease, unspecified; E03.9 Hypothyroidism, unspecified; Z86.73 Personal history of transient ischemic attack (TIA), and cerebral infarction without residual deficits; F17.210 Nicotine dependence, cigarettes, uncomplicated
CPT/HCPCS: 0241U; 70450; 80053; 81001; 85025; 87077; 87086; 87186; 93005; 93010; 99284-25

== ENCOUNTER 2022-01-11 14:07 | Emergency (ER) | payer OTHER ==
[~2022-01-11] VITALS: Ht 162.6 cm; Wt 117.9 kg
[~2022-01-11 14:07] MED LIST changes: +KLONOPIN0.5 M6
[2022-01-11 15:03] LABS: BASOPHILS ABSOLUTE AUTO 0.13 K/mm3 (0.00-0.23); BASOPHILS PERCENT AUTO 2 % (0-2); EOSINOPHILS ABSOLUTE AUTO 0.12 K/mm3 (0.00-0.68); EOSINOPHILS PERCENT AUTO 1 % (0-6); Hematocrit 46.9 % (33.0-51.0); Hemoglobin 15.2 g/dL (11.5-16.0); IMMATURE GRAN ABSOLUTE AUTO 0.34 K/mm3 (0.00-0.10); IMMATURE GRAN PERCENT AUTO 4 % (0-1); LYMPHOCYTES ABSOLUTE AUTO 0.51 K/mm3 (0.84-5.20); LYMPHOCYTES PERCENT AUTO 6 % (21-46); MONOCYTES ABSOLUTE AUTO 0.46 K/mm3 (0.16-1.47); MONOCYTES PERCENT AUTO 5 % (4-13); Mean Corpuscular HGB Conc 32.4 g/dL (31.5-36.5); Mean Corpuscular Volume 84 fL (80-100); Mean Platelet Volume 10.5 fL (9.1-12.4); NEUTROPHILS ABSOLUTE AUTO 7.22 K/mm3 (1.96-9.15); NEUTROPHILS PERCENT AUTO 82 % (41-73); Platelet Count 204 K/mm3 (150-400); RDW Coefficient Variation 15.9 % (11.7-14.2); RDW Standard Deviation 47.9 fL (35.1-46.3); Red Blood Cell Count 5.62 M/mm3 (3.80-5.20); White Blood Cell Count 8.78 K/mm3 (4.00-11.30)
[2022-01-11 15:22] LABS: Albumin/Globulin Ratio 1.1 (0.8-1.8); Bilirubin, Total 0.4 mg/dL (0.1-1.0); Bun/Creatinine Ratio 22.2 (12.0-20.0); Calcium, Blood 9.1 mg/dL (8.5-10.1); Creatinine, Blood 0.9 mg/dL (0.40-1.00); Globulin, Blood 3.6 g/dL (2.2-4.0); Potassium, Blood 4.1 mmol/L (3.5-5.5); Total Protein, Blood 7.6 g/dL (6.4-8.2)
[2022-01-11 17:59] LABS: Source, Urine Clean Catch
[2022-01-11 18:02] LABS: Appearance, Urine Hazy (Clear); Bilirubin, Urine Neg (Neg); Blood, Urine 4+ (Neg); Color, Urine Yellow (P-Yellow); Glucose Qualitative, Urine Neg (Neg); Ketones, Urine Neg (Neg); Leukocyte Esterase, Urine Neg (Neg); Nitrite, Urine Pos (Neg); Protein, Urine Neg (Neg); Urobilinogen, Urine NORM (Normal); pH, Urine 6.5 (5.0-8.0)
[2022-01-11 18:42] LABS: Bacteria Many /hpf; Squamous Epithelial Cells Rare /hpf (Few); White Blood Cells, Urine 0-2 /hpf (0-5)
[2022-01-11] MEDS ORDERED: CEPH500 PO (20:07)
== END 2022-01-11 21:03 | disposition home or self-care (01) ==
LOC: ER 14:07
PROVIDERS: Physician Assistant; Student in an Organized Health Care Education/Training Program
DX: R07.89 Other chest pain (principal); N39.0 Urinary tract infection, site not specified; M71.21 Synovial cyst of popliteal space [Baker], right knee; R21 Rash and other nonspecific skin eruption; M54.9 Dorsalgia, unspecified; J44.9 Chronic obstructive pulmonary disease, unspecified; I10 Essential (primary) hypertension; E03.9 Hypothyroidism, unspecified; F17.210 Nicotine dependence, cigarettes, uncomplicated; Z86.73 Personal history of transient ischemic attack (TIA), and cerebral infarction without residual deficits; Z79.899 Other long term (current) drug therapy; Z79.82 Long term (current) use of aspirin; Z88.5 Allergy status to narcotic agent; Z88.2 Allergy status to sulfonamides; Z88.8 Allergy status to other drugs, medicaments and biological substances
CPT/HCPCS: 36415; 71045; 80053; 81001; 83880; 84484; 85025; 85379; 87077; 87086; 87186; 93005; 93010; 93971; A9270; J1170

== ENCOUNTER → 2022-02-24 | Outpatient (CLI) | payer OTHER ==
[~2022-02-24] MED LIST changes: +CEPH500 PO
== END | disposition home or self-care (01) ==
LOC: LAB 11:14 → LAB SHORT 11:14
DX: N39.0 Urinary tract infection, site not specified (principal)
CPT/HCPCS: 87077; 87086; 87186

== ENCOUNTER → 2022-04-17 | Outpatient (CLI) | payer OTHER | END | disposition home or self-care (01) | LOC: LAB SHORT 14:02 → LAB 14:02 | DX: R22.41 Localized swelling, mass and lump, right lower limb (principal) | CPT/HCPCS: 85379 ==

== ENCOUNTER → 2022-06-05 | Outpatient (CLI) | payer OTHER ==
[2022-06-05 10:40] LABS: Source, Urine Clean Catch
[2022-06-05 13:03] LABS: Appearance, Urine Clear (Clear); Bilirubin, Urine Neg (Neg); Blood, Urine 4+ (Neg); Glucose Qualitative, Urine Neg (Neg); Ketones, Urine Neg (Neg); Leukocyte Esterase, Urine Neg (Neg); Nitrite, Urine Neg (Neg); Protein, Urine Neg (Neg); Urobilinogen, Urine NORM (Normal); pH, Urine 6.5 (5.0-8.0)
[2022-06-05 13:22] LABS: Color, Urine Pale Yellow (P-Yellow)
[2022-06-05 13:23] LABS: Granular Casts 0-2 /lpf (0)
[2022-06-05 13:24] LABS: Bacteria Mod /hpf; Renal Epithelial Rare /hpf (0-Rare); Squamous Epithelial Cells Few /hpf (Few)
== END ==
LOC: LAB SHORT 10:40 → LAB 10:40
PROVIDERS: Internal Medicine
DX: N39.0 Urinary tract infection, site not specified (principal)
CPT/HCPCS: 81001; 87077; 87086; 87186

== ENCOUNTER → 2022-07-15 | Outpatient (CLI) | payer OTHER | END | disposition home or self-care (01) | LOC: LAB SHORT 14:56 | DX: L59.8 Other specified disorders of the skin and subcutaneous tissue related to radiation (principal) | CPT/HCPCS: 88305 ==

== ENCOUNTER → 2022-07-17 | Outpatient (CLI) | payer OTHER ==
[2022-07-17 10:39] LABS: Source, Urine Clean Catch
[2022-07-17 12:54] LABS: Appearance, Urine Clear (Clear); Bilirubin, Urine Neg (Neg); Blood, Urine 3+ (Neg); Color, Urine Yellow (P-Yellow); Glucose Qualitative, Urine Neg (Neg); Ketones, Urine Neg (Neg); Leukocyte Esterase, Urine Neg (Neg); Nitrite, Urine Neg (Neg); Protein, Urine Neg (Neg); Specific Gravity, Urine 1.005 (1.003-1.022); Urobilinogen, Urine NORM (Normal); pH, Urine 6.5 (5.0-8.0)
[2022-07-17 13:41] LABS: Bacteria Few /hpf; Squamous Epithelial Cells Few /hpf (Few)
== END | disposition home or self-care (01) ==
LOC: LAB 10:35 → LAB SHORT 10:35
PROVIDERS: Internal Medicine
DX: N39.0 Urinary tract infection, site not specified (principal)
CPT/HCPCS: 81001

== ENCOUNTER 2022-09-14 20:44 | Emergency (ER) | payer OTHER ==
[~2022-09-14] VITALS: Ht 162.6 cm; Wt 122.5 kg
[2022-09-14] MEDS ORDERED: Budeprion Xl300 MG PO (21:14)
[2022-09-14] MEDS ORDERED: SYNTHROID175 MC1 PO (21:15)
[2022-09-14] MEDS ORDERED: QUET25 PO (21:17)
[2022-09-14] MEDS ORDERED: LOSA50 PO (21:19)
[2022-09-14] MEDS ORDERED: VIBERZI100 MG PO (21:20)
[2022-09-14] MEDS ORDERED: IMODIUM A-D2 M4 PO (21:21)
[2022-09-14 21:40] LABS: BASOPHILS ABSOLUTE AUTO 0.27 K/mm3 (0.00-0.23); BASOPHILS PERCENT AUTO 2 % (0-2); EOSINOPHILS ABSOLUTE AUTO 0.25 K/mm3 (0.00-0.68); EOSINOPHILS PERCENT AUTO 2 % (0-6); Hemoglobin 16.6 g/dL (11.5-16.0); IMMATURE GRAN ABSOLUTE AUTO 0.32 K/mm3 (0.00-0.10); IMMATURE GRAN PERCENT AUTO 3 % (0-1); LYMPHOCYTES ABSOLUTE AUTO 1.87 K/mm3 (0.84-5.20); LYMPHOCYTES PERCENT AUTO 15 % (21-46); MONOCYTES ABSOLUTE AUTO 0.64 K/mm3 (0.16-1.47); MONOCYTES PERCENT AUTO 5 % (4-13); Mean Corpuscular HGB 27.6 pg (26.0-34.0); Mean Corpuscular HGB Conc 32.5 g/dL (31.5-36.5); Mean Corpuscular Volume 85 fL (80-100); Mean Platelet Volume 10.7 fL (9.1-12.4); NEUTROPHILS ABSOLUTE AUTO 8.89 K/mm3 (1.96-9.15); NEUTROPHILS PERCENT AUTO 73 % (41-73); Platelet Count 217 K/mm3 (150-400); RDW Standard Deviation 46.4 fL (35.1-46.3); Red Blood Cell Count 6.01 M/mm3 (3.80-5.20); White Blood Cell Count 12.24 K/mm3 (4.00-11.30)
[2022-09-14 22:02] LABS: Albumin, Blood 3.6 g/dL (3.4-5.0); Bilirubin, Total 0.3 mg/dL (0.1-1.0); Bun/Creatinine Ratio 24.9 (12.0-20.0); Calcium, Blood 9.3 mg/dL (8.5-10.1); Creatinine, Blood 0.76 mg/dL (0.40-1.00); Globulin, Blood 3.6 g/dL (2.2-4.0); Potassium, Blood 3.7 mmol/L (3.5-5.5); Total Protein, Blood 7.2 g/dL (6.4-8.2)
== END 2022-09-15 01:45 | disposition home or self-care (01) ==
LOC: ER 20:44
PROVIDERS: Emergency Medicine
DX: R51.9 Headache, unspecified (principal); R20.0 Anesthesia of skin; J44.9 Chronic obstructive pulmonary disease, unspecified; E03.9 Hypothyroidism, unspecified; I10 Essential (primary) hypertension; F17.210 Nicotine dependence, cigarettes, uncomplicated; Z88.2 Allergy status to sulfonamides; Z88.5 Allergy status to narcotic agent; Z88.8 Allergy status to other drugs, medicaments and biological substances; Z79.890 Hormone replacement therapy; Z79.899 Other long term (current) drug therapy; Z86.73 Personal history of transient ischemic attack (TIA), and cerebral infarction without residual deficits
CPT/HCPCS: 36415; 70450; 80053; 85025; 93005; 93010; 96374; 96375; 99284-25; A9270; J0780; J1885

== ENCOUNTER → 2023-04-24 | Outpatient (CLI) | payer OTHER ==
[~2023-04-24] MED LIST changes: +Budeprion Xl300 MG PO; +CEFAZOLIN IV; +IMITREX50 M2 PO; +IMODIUM A-D2 M4 PO; +LOSA50 PO; +QUET25 PO; +SEROQUEL25 MG PO; +SYNTHROID175 MC1 PO; +VIBERZI100 MG PO
== END | disposition home or self-care (01) ==
LOC: LAB SHORT 13:07 → LAB 13:07
DX: N39.0 Urinary tract infection, site not specified (principal)
CPT/HCPCS: 87086

== ENCOUNTER → 2023-05-25 | Outpatient (CLI) | payer OTHER | LOC: LAB SHORT 15:06 → LAB 15:06 | DX: N39.0 Urinary tract infection, site not specified (principal) | CPT/HCPCS: 87086 ==

== ENCOUNTER 2024-02-25 06:33 | Day surgery (SDC) | payer OTHER ==
[~2024-02-25] VITALS: Ht 165.1 cm; Wt 117.0 kg
[2024-02-25] MEDS ORDERED: TOPI50 PO (07:41)
[2024-02-25] MEDS ORDERED: propofoL 0 ML IV ONE (07:42)
[2024-02-25] MEDS ORDERED: Lactated Ringer's 1,000 ML IV ONE ×2 (07:42→08:22)
[2024-02-25] MEDS ORDERED: Estrace Vagin42.5 GM (07:42)
[2024-02-25] MEDS ORDERED: POTCHL20ER (07:42)
[2024-02-25] MEDS ORDERED: propofoL 60 ML IV ONE (09:26)
[2024-02-25 09:43] VITALS: BP 102/79
== END 2024-02-25 09:40 | disposition home or self-care (01) ==
LOC: ORSCSDS 06:33
PROVIDERS: Specialist
PROC: 0DB68ZX Excision of Stomach, Via Natural or Artificial Opening Endoscopic, Diagnostic (ICD-10-PCS; principal; 2024-02-25 08:00)
PROC: 0DB98ZX Excision of Duodenum, Via Natural or Artificial Opening Endoscopic, Diagnostic (ICD-10-PCS; principal; 2024-02-25 08:00)
PROC: 0DBE8ZX Excision of Large Intestine, Via Natural or Artificial Opening Endoscopic, Diagnostic (ICD-10-PCS; principal; 2024-02-25 08:00)
PROC: 0DB58ZX Excision of Esophagus, Via Natural or Artificial Opening Endoscopic, Diagnostic (ICD-10-PCS; principal; 2024-02-25 08:00)
DX: R19.7 Diarrhea, unspecified (principal); K29.50 Unspecified chronic gastritis without bleeding; B96.81 Helicobacter pylori [H. pylori] as the cause of diseases classified elsewhere; K44.9 Diaphragmatic hernia without obstruction or gangrene; K64.8 Other hemorrhoids; K57.30 Diverticulosis of large intestine without perforation or abscess without bleeding; K21.9 Gastro-esophageal reflux disease without esophagitis; Z80.0 Family history of malignant neoplasm of digestive organs; J44.9 Chronic obstructive pulmonary disease, unspecified; G47.33 Obstructive sleep apnea (adult) (pediatric); I25.10 Atherosclerotic heart disease of native coronary artery without angina pectoris; F41.9 Anxiety disorder, unspecified; E78.5 Hyperlipidemia, unspecified; I10 Essential (primary) hypertension; E66.9 Obesity, unspecified; Z68.41 Body mass index [BMI] 40.0-44.9, adult; F43.10 Post-traumatic stress disorder, unspecified; Z79.82 Long term (current) use of aspirin; Z79.899 Other long term (current) drug therapy
CPT/HCPCS: 88305; 88342; J2704; J7120

== ENCOUNTER → 2024-04-21 | Outpatient (CLI) | payer OTHER ==
[~2024-04-21] MED LIST changes: +Estrace Vagin42.5 GM; +POTCHL20ER; +TOPI50 PO
[2024-04-22 20:22] LABS: H. PYLORI BREATH TEST Negative (Negative)
== END ==
LOC: LAB 13:33 → LAB SHORT 13:33
PROVIDERS: Physician Assistant Medical
DX: K29.70 Gastritis, unspecified, without bleeding (principal); B96.81 Helicobacter pylori [H. pylori] as the cause of diseases classified elsewhere
CPT/HCPCS: 83013

== ENCOUNTER → 2025-06-01 | Outpatient (CLI) | payer OTHER | LOC: LAB SHORT 11:33 → LAB 11:33 | DX: N39.0 Urinary tract infection, site not specified (principal); R31.9 Hematuria, unspecified | CPT/HCPCS: 87077; 87086; 87186 ==

== ENCOUNTER → 2025-06-06 | Outpatient (CLI) | payer OTHER ==
[2025-06-06 12:21] LABS: BASOPHILS ABSOLUTE AUTO 0.01 K/mm3 (0.00-0.23); BASOPHILS PERCENT AUTO 0 % (0-2); EOSINOPHILS ABSOLUTE AUTO 0.04 K/mm3 (0.00-0.68); EOSINOPHILS PERCENT AUTO 1 % (0-6); Hematocrit 43.7 % (33.0-51.0); Hemoglobin 14.8 g/dL (11.5-16.0); IMMATURE GRAN ABSOLUTE AUTO 0.02 K/mm3 (0.00-0.10); IMMATURE GRAN PERCENT AUTO 0 % (0-1); LYMPHOCYTES ABSOLUTE AUTO 1.21 K/mm3 (0.84-5.20); LYMPHOCYTES PERCENT AUTO 26 % (21-46); MONOCYTES ABSOLUTE AUTO 0.20 K/mm3 (0.16-1.47); MONOCYTES PERCENT AUTO 4 % (4-13); Mean Corpuscular HGB Conc 33.9 g/dL (31.5-36.5); Mean Corpuscular Volume 95 fL (80-100); NEUTROPHILS ABSOLUTE AUTO 3.20 K/mm3 (1.96-9.15); NEUTROPHILS PERCENT AUTO 68 % (41-73); NRBC ABSOLUTE 0.00 K/mm3 (0.00-0.02); NRBC Auto 0.0 /100 WBC (0.0-0.2); RDW Coefficient Variation 13.5 % (11.7-14.2); RDW Standard Deviation 46.5 fL (35.1-46.3)
[2025-06-06 12:33] LABS: Alanine Aminotransfer (ALT/SGP 52.0 U/L (12-78); Albumin, Blood 3.9 g/dL (3.4-5.0); Albumin/Globulin Ratio 1.1 (0.8-1.8); Anion Gap 14.0 mmol/L (3-11); Aspartate Aminotrans (AST/SGOT 33.0 U/L (12-37); Bilirubin, Total 0.6 mg/dL (0.1-1.0); Blood Urea Nitrogen 9.0 mg/dL (8-24); CO2, Blood 28.0 mmol/L (21-32); Calcium, Blood 9.3 mg/dL (8.5-10.1); Chloride, Blood 105.0 mmol/L (98-108); Creatinine, Blood 0.87 mg/dL (0.40-1.00); Globulin, Blood 3.7 g/dL (2.2-4.0); Glucose, Blood 113.0 mg/dL (70-99); Potassium, Blood 3.8 mmol/L (3.5-5.5); Sodium, Blood 143.0 mmol/L (136-145); Total Protein, Blood 7.6 g/dL (6.4-8.2)
[2025-06-06 13:06] LABS: Platelet Count 83 K/mm3 (150-400)
== END ==
LOC: LAB SHORT 12:17 → LAB 12:17
PROVIDERS: Family Medicine
DX: R03.0 Elevated blood-pressure reading, without diagnosis of hypertension (principal)
CPT/HCPCS: 80053; 85025

== ENCOUNTER → 2025-06-06 | Outpatient (CLI) | payer OTHER | LOC: LAB 12:41 → LAB SHORT 12:41 | DX: R30.0 Dysuria (principal) | CPT/HCPCS: 87086 ==

== ENCOUNTER 2025-07-22 18:19 | Inpatient (IN) | payer OTHER ==
[~2025-07-22] VITALS: Ht 165.1 cm; Wt 121.0 kg
[~2025-07-22 18:19] MED LIST changes: -CYCL10; +CYCL10 PO; +ISOSORBIDE MONO30 MG PO; -Isosorbide Mono30 MG PO; +OXYC10TA19 PO; -OXYC1TAB11 PO; -POTCHL20ER; +POTCHL20ER PO
[2025-07-22] MEDS ORDERED: DiphenhydrAMINE HCl 50 MG/ML 1ML Vial IV ONE ×2 (20:25→22:00)
[2025-07-22 20:57] LABS: BASOPHILS ABSOLUTE AUTO 0.02 K/mm3 (0.00-0.23); BASOPHILS PERCENT AUTO 0 % (0-2); EOSINOPHILS ABSOLUTE AUTO 0.07 K/mm3 (0.00-0.68); EOSINOPHILS PERCENT AUTO 1 % (0-6); Hematocrit 40.6 % (33.0-51.0); Hemoglobin 13.2 g/dL (11.5-16.0); IMMATURE GRAN ABSOLUTE AUTO 0.02 K/mm3 (0.00-0.10); IMMATURE GRAN PERCENT AUTO 0 % (0-1); LYMPHOCYTES ABSOLUTE AUTO 1.49 K/mm3 (0.84-5.20); LYMPHOCYTES PERCENT AUTO 26 % (21-46); MONOCYTES ABSOLUTE AUTO 0.37 K/mm3 (0.16-1.47); MONOCYTES PERCENT AUTO 6 % (4-13); Mean Corpuscular HGB Conc 32.5 g/dL (31.5-36.5); Mean Corpuscular Volume 101 fL (80-100); NEUTROPHILS ABSOLUTE AUTO 3.86 K/mm3 (1.96-9.15); NEUTROPHILS PERCENT AUTO 66 % (41-73); NRBC ABSOLUTE 0.00 K/mm3 (0.00-0.02); NRBC Auto 0.0 /100 WBC (0.0-0.2); Platelet Count 82 K/mm3 (150-400); RDW Coefficient Variation 14.5 % (11.7-14.2); RDW Standard Deviation 53.1 fL (35.1-46.3)
[2025-07-22 21:14] LABS: Alanine Aminotransfer (ALT/SGP 55.0 U/L (12-78); Albumin, Blood 4.1 g/dL (3.4-5.0); Albumin/Globulin Ratio 1.2 (0.8-1.8); Anion Gap 9.0 mmol/L (3-11); Aspartate Aminotrans (AST/SGOT 33.0 U/L (12-37); Bilirubin, Total 0.4 mg/dL (0.1-1.0); Blood Urea Nitrogen 14.0 mg/dL (8-24); CO2, Blood 25.0 mmol/L (21-32); Calcium, Blood 8.9 mg/dL (8.5-10.1); Chloride, Blood 109.0 mmol/L (98-108); Creatinine, Blood 0.87 mg/dL (0.40-1.00); Globulin, Blood 3.4 g/dL (2.2-4.0); Glucose, Blood 87.0 mg/dL (70-99); Potassium, Blood 3.7 mmol/L (3.5-5.5); Sodium, Blood 139.0 mmol/L (136-145); Total Protein, Blood 7.5 g/dL (6.4-8.2)
[2025-07-22] MEDS ORDERED: FentaNYL Citrate 50 MCG/ML 2 ML Injection IV PRN (23:05)
[2025-07-23] MEDS ORDERED: HydrALAZINE HCl 20 MG / ML 1ML Vial IV ONE ×2 (00:45→15:45)
[2025-07-23] MEDS ORDERED: Ondansetron HCl 2 MG / ML 2ML Vial IV PRN (01:55)
[2025-07-23] MEDS ORDERED: FLU VACC TS2025-26(6MOS UP)/PF 45 MCG/0.5 ML SYRINGE IM SCH (01:55)
[2025-07-23 03:32] VITALS: BP 165/109
--- NOTE | 2025-07-23 04:04 | NUR ---
PATIENT IS A NEW ADMIT FROM THE ED. ALERT ORIENTED AND FOUR PERSON TRANSFER FROM [facility] TO BED. RIGHT LEG DEFICIT NOT ABLE TO RAISE OR PUSH/PULL. REPORTS LOST FOR WORDS AT TIMES AND MILD SLOW TO RESPOND. UNABLE TO GIVE COMPLETE SMILE. DR BECERRIL IN ROOM FOR ASSESSMENT. NO VERBAL ORDERS GIVEN. NPO AT THIS TIME. POWERGLIDE INEZ ARM. HARDIK REATTACHED FROM THE ED. PERMISSIVE HYPERTENSION REPORTED BY ED BRAD HILLIARD APPROVED BY ED DR NICHOLS. TELEMETRY PLACE AND TECH REPORTS NSR 75. DENIES CHEST PAIN, SOB, AND N/V. PATIENT REPORTS SHE WANTS TO SLEEP AFTER ASSESSMENT. WCTM.
[2025-07-23] MEDS ORDERED: Tiotropium Bromide 2.5 MCG/ACT MIST INHAL (10 ACT/4 GM) INH SCH (05:20)
[2025-07-23] MEDS ORDERED: OxyCODONE 10/Acetamin 325 TABLET PO PRN (05:20)
[2025-07-23 05:40] LABS: BASOPHILS ABSOLUTE AUTO 0.01 K/mm3 (0.00-0.23); BASOPHILS PERCENT AUTO 0 % (0-2); EOSINOPHILS ABSOLUTE AUTO 0.00 K/mm3 (0.00-0.68); EOSINOPHILS PERCENT AUTO 0 % (0-6); Hematocrit 38.1 % (33.0-51.0); Hemoglobin 12.8 g/dL (11.5-16.0); IMMATURE GRAN ABSOLUTE AUTO 0.01 K/mm3 (0.00-0.10); IMMATURE GRAN PERCENT AUTO 0 % (0-1); LYMPHOCYTES ABSOLUTE AUTO 0.50 K/mm3 (0.84-5.20); LYMPHOCYTES PERCENT AUTO 13 % (21-46); MONOCYTES ABSOLUTE AUTO 0.01 K/mm3 (0.16-1.47); MONOCYTES PERCENT AUTO 0 % (4-13); Mean Corpuscular HGB Conc 33.6 g/dL (31.5-36.5); Mean Corpuscular Volume 98 fL (80-100); NEUTROPHILS ABSOLUTE AUTO 3.25 K/mm3 (1.96-9.15); NEUTROPHILS PERCENT AUTO 86 % (41-73); NRBC ABSOLUTE 0.00 K/mm3 (0.00-0.02); NRBC Auto 0.0 /100 WBC (0.0-0.2); Platelet Count 92 K/mm3 (150-400); RDW Coefficient Variation 14.3 % (11.7-14.2); RDW Standard Deviation 50.5 fL (35.1-46.3)
--- NOTE | 2025-07-23 05:41 | NUR ---
URINE TOX SCREEN COLLECTED AND SENT TO LAB.
[2025-07-23 05:47] LABS: Source, Urine Clean Catch
[2025-07-23] MEDS ORDERED: Levothyroxine Sodium 0.175 MG TAB PO SCH (06:00)
[2025-07-23 06:06] LABS: Bilirubin, Urine Neg (Neg); Glucose Qualitative, Urine Neg (Neg); Ketones, Urine Neg (Neg); Leukocyte Esterase, Urine Neg (Neg); Protein, Urine 1+ (Neg); Specific Gravity, Urine 1.015 (1.003-1.022); Urobilinogen, Urine NORM (Normal)
[2025-07-23 06:10] LABS: Alanine Aminotransfer (ALT/SGP 50.0 U/L (12-78); Albumin, Blood 3.6 g/dL (3.4-5.0); Albumin/Globulin Ratio 1.0 (0.8-1.8); Anion Gap 10.0 mmol/L (3-11); Aspartate Aminotrans (AST/SGOT 25.0 U/L (12-37); Bilirubin, Total 0.5 mg/dL (0.1-1.0); Blood Urea Nitrogen 12.0 mg/dL (8-24); CO2, Blood 24.0 mmol/L (21-32); Calcium, Blood 8.9 mg/dL (8.5-10.1); Chloride, Blood 109.0 mmol/L (98-108); Creatinine, Blood 0.67 mg/dL (0.40-1.00); Globulin, Blood 3.6 g/dL (2.2-4.0); Glucose, Blood 174.0 mg/dL (70-99); Potassium, Blood 3.6 mmol/L (3.5-5.5); Sodium, Blood 139.0 mmol/L (136-145); Total Protein, Blood 7.2 g/dL (6.4-8.2)
[2025-07-23 06:19] LABS: Color, Urine Pale Yellow (P-Yellow)
[2025-07-23 06:20] LABS: Red Blood Cells, Urine 0-2 /hpf (0-2); White Blood Cells, Urine Not Seen /hpf (0-5)
[2025-07-23 06:22] LABS: U Amphetamine Screen Not Detected; U Barbiturate Screen Not Detected; U Benzodiazapine Screen Not Detected; U Buprenorphine Screen Not Detected; U Cannabinoids Screen Not Detected; U Cocaine Screen Not Detected; U Methadone Screen Not Detected; U Methamphetamine Screen Not Detected; U Opiates Screen Not Detected; U Oxycodone Screen Not Detected; U Phencyclidine Screen Not Detected
[2025-07-23 07:16] VITALS: BP 214/103
--- NOTE | 2025-07-23 08:35 | NUR ---
PALLIATIVE CARE CONSULT: CONSULT RECEIVED FOR ADVANCED CARE PLANNING AND SYMPTOM MANAGEMENT. REVIEWED MEDICAL RECORD. NO POLST/AD ON FILE OR WITH [facility]PR.
[2025-07-23] MEDS ORDERED: Isosorbide Mononitrate 30 MG TABCR PO SCH (09:00)
[2025-07-23] MEDS ORDERED: Enoxaparin 40 MG/0.4 ML SYR SC SCH (09:00)
[2025-07-23 11:47] VITALS: BP 194/92
--- NOTE | 2025-07-23 14:51 | NUR ---
OUT OF ROOM NOTE: PATIENT OUT OF ROOM VIA GURNEY AT THIS TIME TO IMAGING.
[2025-07-23] MEDS ORDERED: LORazepam 2 MG/ML 1ML Injection IV PRN (15:20)
[2025-07-23 15:30] VITALS: BP 212/97
[2025-07-23 16:22] VITALS: BP 188/96
--- NOTE | 2025-07-23 17:24 | NUR ---
PT ALERT AND ORIENTED X4, NIH 3, PT HAS WEAKNESS TO RLE ABLE TO HOLD LEG OFF BED AGAINST GRAVITY. DENIES HEADACHE, ELEVATED BP'S-PRN HYDRALAZINE IV ONCE GIVEN-EFFECTIVE RESPONSE TO DOSE. PO OXYCODONE FOR CHRONIC BACK PAIN AND RIGHT LEG PAIN FROM FALL. PHYSICAL THEARAPY EVAL COMPLETED TODAY-RIGHT KNEE BUCKLE AND WEAKNESS. EXTERNAL CATHETER PUR WICK IN PLACE, TOLERATING REGULAR DIET, CALL LIGHT IN REACH, BED ALARM ON.
[2025-07-23 20:37] VITALS: BP 180/107
[2025-07-24] VITALS (8 sets, daily range): BP systolic 154–207; BP diastolic 75–110
--- NOTE | 2025-07-24 04:18 | NUR ---
SHIFT SUMMARY PATIENT HAD NO ACUTE CHANGES. ALERT ORIENTED AND BEDREST. RIGHT LEG WEAKNESS AND ABLE TO LIFT OFF BED A FEW INCHES. DENIES CHEST PAIN, SOB, AND N/V. AFEBRILE. REPORTED BACK/LEG PAIN X TWO AND OXYCODONE GIVEN PER EVENT. PUREWICK IN PLACE. TELE MONITOR NSR 76. PERMISSIVE HYPERTENSION. CALL LIGHT IN REACH. BED IN LOWEST POSITION. WILL CONTINUE TO MONITOR UNTIL DAY SHIFT NURSE ASSUMES CARE.
--- NOTE | 2025-07-24 04:53 | NUR ---
BP 207/110. HOSPITALIST DR PEDRO REPORTS TO GIVEN 09:00 COZAAR 50 MG NOW. WCTM.
[2025-07-24 06:01] LABS: BASOPHILS ABSOLUTE AUTO 0.01 K/mm3 (0.00-0.23); BASOPHILS PERCENT AUTO 0 % (0-2); EOSINOPHILS ABSOLUTE AUTO 0.02 K/mm3 (0.00-0.68); EOSINOPHILS PERCENT AUTO 0 % (0-6); Hematocrit 35.7 % (33.0-51.0); Hemoglobin 11.7 g/dL (11.5-16.0); IMMATURE GRAN ABSOLUTE AUTO 0.01 K/mm3 (0.00-0.10); IMMATURE GRAN PERCENT AUTO 0 % (0-1); LYMPHOCYTES ABSOLUTE AUTO 2.22 K/mm3 (0.84-5.20); LYMPHOCYTES PERCENT AUTO 32 % (21-46); MONOCYTES ABSOLUTE AUTO 0.43 K/mm3 (0.16-1.47); MONOCYTES PERCENT AUTO 6 % (4-13); Mean Corpuscular HGB Conc 32.8 g/dL (31.5-36.5); Mean Corpuscular Volume 100 fL (80-100); NEUTROPHILS ABSOLUTE AUTO 4.24 K/mm3 (1.96-9.15); NEUTROPHILS PERCENT AUTO 61 % (41-73); NRBC ABSOLUTE 0.00 K/mm3 (0.00-0.02); NRBC Auto 0.0 /100 WBC (0.0-0.2); Platelet Count 92 K/mm3 (150-400); RDW Coefficient Variation 14.7 % (11.7-14.2); RDW Standard Deviation 52.4 fL (35.1-46.3)
[2025-07-24 06:17] LABS: Alanine Aminotransfer (ALT/SGP 42.0 U/L (12-78); Albumin, Blood 3.4 g/dL (3.4-5.0); Albumin/Globulin Ratio 1.2 (0.8-1.8); Anion Gap 8.0 mmol/L (3-11); Aspartate Aminotrans (AST/SGOT 24.0 U/L (12-37); Bilirubin, Total 0.3 mg/dL (0.1-1.0); Blood Urea Nitrogen 19.0 mg/dL (8-24); CO2, Blood 25.0 mmol/L (21-32); Calcium, Blood 8.4 mg/dL (8.5-10.1); Chloride, Blood 110.0 mmol/L (98-108); Creatinine, Blood 0.8 mg/dL (0.40-1.00); Globulin, Blood 2.9 g/dL (2.2-4.0); Glucose, Blood 101.0 mg/dL (70-99); Potassium, Blood 3.8 mmol/L (3.5-5.5); Sodium, Blood 139.0 mmol/L (136-145); Total Protein, Blood 6.3 g/dL (6.4-8.2)
--- NOTE | 2025-07-24 06:22 | NUR ---
BP RECHECK:172/81. DOWN FROM 207/110 AND AFTER GIVING 09:00 DOSE OF COZAAR [address] PEDRO. WCTM
[2025-07-24] MEDS ORDERED: ACET325 PO (16:28)
[2025-07-24] MEDS ORDERED: ALBU90OI INH (16:28)
[2025-07-24] MEDS ORDERED: GABA300 PO (16:34)
[2025-07-24] MEDS ORDERED: BISA10S PR (16:57)
[2025-07-24] MEDS ORDERED: Buspirone HCl15 MG PO (16:58)
[2025-07-24] MEDS ORDERED: BUPR150ER PO (16:58)
[2025-07-24] MEDS ORDERED: CATAPRES0.2 M1 PO (16:59)
[2025-07-24] MEDS ORDERED: DULCOLAX400 MG/5 M PO (17:00)
[2025-07-24] MEDS ORDERED: AMLO5 PO (17:01)
[2025-07-24] MEDS ORDERED: ONDA4 PO (17:01)
[2025-07-24] MEDS ORDERED: [UNRECOGNIZED DRUG - OTHER] PO (17:02)
[2025-07-24] MEDS ORDERED: ZINC OXIDE57 GM TOP (17:03)
[2025-07-24] MEDS ORDERED: Sprycel100 MG PO (17:04)
[2025-07-24] MEDS ORDERED: Desyrel150 MG PO (17:04)
[2025-07-24] MEDS ORDERED: C COMPLEX1000 M1 PO (17:05)
[2025-07-24] MEDS ORDERED: VITAMIN D5000 UNIT PO (17:05)
[2025-07-24] MEDS ORDERED: VITAMIN B-122000 MC1 PO (17:06)
--- NOTE | 2025-07-24 18:05 | NUR ---
PT ALERT AND ORIENTED X4, ABLE TO TRANSFER 1P PIVOT TRANSFERS TO CHAIR AND BSC, PAIN MANAGEMENT WITH PO MUSTAPHACO, TELE SR HR 63, NIH 3. TOLERATING DIET WELL, BP IMPROVING-MEDS SCHEDULED AND GIVEN PER EMAR. CALL LIGHT IN REACH, PT CALL APPROPRIATELY FOR ASSISTANCE.
[2025-07-24] MEDS ORDERED: HydrALAZINE HCl 20 MG / ML 1ML Vial IV ONE (23:55)
[2025-07-25 03:23] VITALS: BP 181/83
--- NOTE | 2025-07-25 06:21 | NUR ---
SHIFT SUMMARY PT A&OX4 AND ANSWERS [place] APPROPRIATELY. PT BLOOD PRESSURES ARE ELEVATED, PT HAS HX OF HTN AND TAKES HOME MEDICATIONS. PT TO DISCUSS HOME MEDICATION REGIMEN IN AM WITH PHYSICIAN TO UPDATE EMAR WITH REMAINING HOME MEDICATIONS. REMAINING VSS, NO COMPLAINTS OF CP/PRESSURE OR SOB. PT CONTINENT MOST OF SHIFT. PT SPENT SHIFT RESTING IN BED WITH EYES CLOSED AND RESPIRATIONS EVEN AND UNLABORED. NO ACUTE EVENTS AT THIS TIME. FALL PRECAUTIONS IN PLACE AND CALL LIGHT IN REACH.
[2025-07-25 07:25] VITALS: BP 165/111
[2025-07-25 11:22] VITALS: BP 180/80
[2025-07-25] MEDS ORDERED: ATOR80 PO (14:29)
--- NOTE | 2025-07-25 15:46 | NUR ---
DISCHARGE PT PHYSICAL AND SPEECH IMPROVMENT WAS OBSERVED THIS SHIFT COMPARED TO YESTERDAY. PT WORKED WITH PHYSICAL, OCCUPATIONAL, AND SPEECH THERAPY TODAY. PT DISCHARGED WITH HOME HEALTH. PT TRANSPORTED BACK TO [facility] BY HER DAUGHTER. PT STATED NO FURTHER QUESTIONS AT TIME OF DC. NEW MEDS SENT TO [facility]. NO OTHER ACUTE CHANGES IN ASSESSMENT AT TIME OF DC.
== END 2025-07-25 15:21 | disposition home health service (06) | DRG 65 ==
LOC: ER 18:19 → ERHOLD 07-23 01:49 → MEDS 07-23 01:49
PROVIDERS: Family Medicine; Internal Medicine; ADMIT Specialist
DX: I63.81 Other cerebral infarction due to occlusion or stenosis of small artery (principal); Z68.41 Body mass index [BMI] 40.0-44.9, adult; E66.01 Morbid (severe) obesity due to excess calories; R47.81 Slurred speech; G83.11 Monoplegia of lower limb affecting right dominant side; J44.9 Chronic obstructive pulmonary disease, unspecified; E03.9 Hypothyroidism, unspecified; I10 Essential (primary) hypertension; F17.210 Nicotine dependence, cigarettes, uncomplicated; D69.6 Thrombocytopenia, unspecified; K21.9 Gastro-esophageal reflux disease without esophagitis; Z88.5 Allergy status to narcotic agent; Z85.44 Personal history of malignant neoplasm of other female genital organs; Z85.79 Personal history of other malignant neoplasms of lymphoid, hematopoietic and related tissues; Z86.73 Personal history of transient ischemic attack (TIA), and cerebral infarction without residual deficits; Z90.89 Acquired absence of other organs; Z90.49 Acquired absence of other specified parts of digestive tract; Z88.2 Allergy status to sulfonamides; Z88.8 Allergy status to other drugs, medicaments and biological substances; Z91.013 Allergy to seafood
CPT/HCPCS: 70450; 70496; 70498; 70551; 73562-RT; 80053; 81001; 82947; 83880; 84484; 85025; 92610; 93005; 93010; 93306; 93880; 94640; 94664; 94760; 96374; 96375; 96376; 97110; 97116; 97162; 97166; 97530; 97535; 99285-25; A6590; A9270; C1751; J0360; J1200; J1650; J2060; J2919; J3010; Q9967